=== PATIENT | female | born 1985 | race African-American/Black ===

== ENCOUNTER 2025-02-13 15:06 | Inpatient (IN) | payer OTHER, SELFPAY ==
--- OUTSIDE RECORDS SUMMARY | 2025-02-12 13:10 | XMS_ITS | Encounter Summary ---
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 Name Role Phone Physician, No Pcp Primary Care Provider Unavaila ble Reason for Visit * Reason Comments Psychiatric Evaluation Encounter Details Date Type Department Care Team (Late st Contact Info) Description 02/12/2025 1:10 PM EDT - 02/13/2025 2:52 PM EDT Emergency [facility] Emergency [address] [place] [id number] Bernabe Young, DO [address] [place] [address] Alannah Watson MD [address] [place] [address] Torsten Mabry MD [address] [place] [address] Marialuisa Ugalde MD [address] [place] [address] Substance use (Primary Dx); Homelessness Discharge Disposition: Another Health Care Institution Not Defined Social History Tobacco Use Types Packs/Day Years Used Date Smoking Tobacco: Every Day Cigarettes Smokeless Tobacco: Never Tobacco Cessation:Ready to Q uit: Not Asked; Counseling Given: Not Answered Alcohol Use Standard Drinks/Week Comments Yes 0 (1 standard drink = 0.6 oz pur e alcohol) Comments No Sex and Gender Information Value Date Recorded Sex Assigned at Not on file Legal Sex Female 1:08 PM EDT Gender Identity Not on file Sexual Orientation Not on file documented as of this encounter Last Filed Vital Signs Vital Sign Reading Time Taken Comments Blood Pressure 135/64 02/13/2025 2:30 PM EDT Pulse 87 02/13/2025 2:30 PM EDT Temperature 36.6 C (97.9 F) 02/13/2025 2:30 PM EDT Respiratory Rate 18 02/13/2025 2:30 PM EDT Oxygen Saturation 96% 02/13/2025 2:30 PM EDT Inhaled Oxygen Concentration - - Weight 145 kg (320 lb) 02/12/2025 1:19 PM EDT Height 175.3 cm (5' 9 ) 02/12/2025 1:19 PM EDT Body Mass Index 47.26 02/12/2025 1:19 PM EDT documented in this encounter Functional Status * Calculated C-SSRS Risk Score (Lifetime/Recent) Answer Date of Assessment Author No Risk Indicated 02/13/2025 9:15 AM EDT Cynthia Cabello RN * Bertie Suicide Severity Rating Scale (Screener/Recent Self-Report) Question Answer Date of Assessment Author 1. Wish to be (Past 1 Month) No 9:15 AM EDT Cynthia Cabello RN 2. Non-Specific Active Suici maeve Thoughts (Past 1 Month) No 02/13/2025 9:15 AM EDT Rody Cabello RN 6. Suicidal Behavior (Lifetime) No 9:15 AM EDT Cynthia Cabello RN documented as of this encounter Discharge Disposition Disposition Code Departure Means Destination Comment s Another Health Care Institution Not Defined documented in this encounter Progress Notes * Cynthia Cabello RN - 02/13/2025 12:02 PM EDT Nurse to Nurse report given to JESSICA Mcgrath at [facility]. This RN answered all questions, Ramila denied further questions. * Tere Franz - 02/13/2025 11:28 AM EDT BED FOUND - patient has been accepted to [facility], unit M[address], by Dr Caesar Johnston. Theywould like her there for 2pm. * Torsten Mabry MD - 02/12/2025 10:15 PM EDT Blas Reed This patient's care was signed out to me by the offgoing provider. Please see her/his note for further details regarding initial presentation, history of present illness, physical exam, and medical decision making. At time of signout, the following was pending: psych placement ED Course as of 02/13/25 0703 WedFeb 12, 2025 1533 Labs thus far are showing urine drug screen that is positive for acute cane and cannabinoids but otherwise no significant abnormalities identified on labs thus far. [AB] 1714 On reexamination, patient is without any new or worsening symptoms. She has been able to eat here and is resting in the exam bed. Workup pending evaluation by ripshear operator. [AB] [address] Young: hx polysubstance use disorder, unhoused, at halfway, using cocaine and EtOH, no SI, HI, no medical concerns, pending placement for inpatient admission [RG] 2213 Patient signed out to Dr. Mabry pending bed search. [RG] 2214 Patient signed out to me at this time pending bed search for psych inpatient admission. [CL] WedFeb 13, 2025 0700 No acute events overnight. Patient signed out to oncoming provider. [CL] ED Course User Index [AB] Bernabe Young DO [CL] Torsten Mabry MD [RG] Alannah Watson MD Clinical Impressions as of 02/13/25 0703 Substance use Homelessness No orders to display Labs Reviewed COMPREHENSIVE METABOLIC PANEL - Abnormal Result Value Sodium 134 Potassium 4.0 Chloride 101 CO2 27 Anion Gap 6 Glucose 112 (*) BUN 12 Creatinine 1.17 (*) eGFR 61 BUN/Creatinine Ratio 10.3 Calcium 8.8 AST (SGOT) 24 ALT (SGPT) 15 Alkaline Phosphatase 83 Total Protein 7.1 Albumin 3.2 Total Bilirubin 0.3 ACETAMINOPHEN LEVEL - Abnormal Acetaminophen Level <2.0 (*) SALICYLATE LEVEL - Abnormal Salicylate Level <1.7 (*) DRUG ABUSE SCREEN 8A PANEL, URINE - Abnormal Amphetamine Screen, Ur Negative Barbiturate Screen, Ur Negative Benzodiazepine Screen, Ur Negative Cocaine Screen, Ur Positive (*) Opiate Screen, Ur Negative Cannabinoid (THC) Screen, Ur Positive (*) Oxycodone Screen, Ur Negative Fentanyl, Ur Negative Narrative: Assay cutoffs: Amphetamines 1000 ng/mL Barbiturates 200 ng/mL Benzodiazepines 200 ng/mL Cocaine 300 ng/mL Fentanyl 1 ng/mL Opiates 300 ng/mL Oxycodone 100 ng/mL THC 50 ng/mL Semi-quantitative assay for screening purposes only. Unconfirmed screening result should not be used for non-medical purposes. *ALTERNATE METHOD CONFIRMATION DONE UPON REQUEST ONLY* CBC WITH AUTO DIFFERENTIAL - Abnormal WBC 9.8 RBC 4.70 Hemoglobin 12.5 Hematocrit 40.7 MCV 86.6 MCH 26.6 (*) MCHC 30.7 (*) RDW 16.4 (*) Platelets 300 MPV 10.7 NRBC 0.0 NRBC Absolute 0.00 Neutrophils Relative 68.5 Lymphocytes Relative 20.9 Monocytes Relative 6.4 Eosinophils Relative 3.6 Basophils Relative 0.3 Immature Granulocytes Relative 0.3 Neutrophils Absolute 6.70 Lymphocytes Absolute 2.04 Monocytes Absolute 0.63 Eosinophils Absolute 0.35 Basophils Absolute 0.03 Immature Granulocytes Absolute 0.03 ETHANOL - Normal Ethanol Level 3 BUPRENORPHINE SCREEN, URINE - Normal Buprenorphine Screen Urine Negative Narrative: Assay cutoff 5 ng/mL Semi-quantitative assay for screening purposes only. Unconfirmed screening result should not be used for non-medical purposes. *ALTERNATE METHOD CONFIRMATION DONE UPON REQUEST ONLY* PHENCYCLIDINE, URINE - Normal PCP Scrn, Ur Negative METHADONE SCREEN, URINE - Normal Methadone Screen, Urine Negative POC , URINE DIAGNOSTIC - Normal HCG, Ur POC Negative POC hCG Int QC Pass? Yes CBC AND DIFFERENTIAL Narrative: The following orders were created for panel order CBC and differential. Procedure Abnormality Status --------- ------ CBC auto differential[[id number]] Abnormal Final result Please view results for these tests on the individual orders. Clinical Impression(s): Final diagnoses: [F19.90] Substance use [Z59.00] Homelessness Data Unavailable Previous Medications No medications on file ED Medication Administration from 02/12/2025 1308 to 02/13/2025 0703 Date/Time Order Dose Route Action Action by 02/12/2025 1345 EDT LORazepam (ATIVAN) tablet 2 mg 2 mg oral Given Fermin Bourne * Alannah Watson MD - 02/12/2025 10:15 PM EDT Blas Reed ED Course as of 02/12/252214Feb 12, 2025 1533 Labs thus far are showing urine drug screen that is positive for acute cane and cannabinoids but otherwise no significant abnormalities identified on labs thus far. [AB] 1714 On reexamination, patient is without any new or worsening symptoms. She has been able to eat here and is resting in the exam bed. Workup pending evaluation by ripshear operator. [AB] [address] Young: hx polysubstance use disorder, unhoused, at halfway, using cocaine and EtOH, no SI, HI, no medical concerns, pending placement for inpatient admission [RG] 2213 Patient signed out to Dr. Mabry pending bed search. [RG] 2213 Patient signed out to [facility] at this time pending bed search for psych inpatient admission. [CL] ED Course User Index [AB] Bernabe Young DO [CL] Torsten Mabry MD [RG] Alannah Watson MD Clinical Impressions as of 02/12/252214 Substance use Homelessness * Nelia Frazier RN - 02/12/2025 1:13 PM EDT PT USING CRACK X 2 WEEKS MARIJUANA, ETOH, NOT SLEEPING X 1 WEEK FRIENDS OF HOMELESS - SECT 12 DENIES SI AT THIS TIME * Bernabe Young DO - 02/12/2025 1:08 PM EDT HPI Chief Complaint Patient presents with Psychiatric Evaluation HPI This is a 39-year-old female who presents to the emergency department for evaluation because she went to the homeless halfway and was sent here because she was restless appearing and had stated that she had not been sleeping for several days. The patient reports that she is homeless and had been staying with a family member however they kicked her out today. She describes a history of some mentalhealth disorders and more recently reports that she started smoking crack cocaine and drinking again. This is causing her to feel upset and sad. She denies homicidal or suicidal ideations. Reports no auditory or visual hallucinations at this time. Patient History Medical History[1] Surgical History[2] Family History[3] Social History Tobacco Use Smoking status: Every Day Types: Cigarettes Smokeless tobacco: Never Substance Use Topics Alcohol use: Yes Drug use: Yes Types: Crack cocaine Review of Systems Review of Systems Constitutional: Negative for fatigue and fever. Eyes: Negative for visual disturbance. Cardiovascular: Negative for palpitations. Gastrointestinal: Negative for nausea and vomiting. Skin: Negative for rash and wound. Neurological: Negative for dizziness, syncope, weakness and light-headedness. Psychiatric/Behavioral: Positive for dysphoric mood and sleep disturbance. Negative for agitation, hallucinations, self-injury and suicidal ideas. The patient is nervous/anxious and is hyperactive. Physical Exam ED Triage Vitals Temp Pulse Resp BP -- -- -- -- SpO2 Temp src Heart Rate Source Patient Position -- -- -- -- BP Location FiO2 (%) -- -- Physical Exam Vitals and nursing note reviewed. Constitutional: Appearance: She is not diaphoretic. HENT: Head: Normocephalic and atraumatic. Nose: Nose normal. Mouth/Throat: Mouth: Mucous membranes are moist. Pharynx: Oropharynx is clear. Eyes: Extraocular Movements: Extraocular movements intact. Right eye: Normal extraocular motion and no nystagmus. Left eye: Normal extraocular motion and no nystagmus. Conjunctiva/sclera: Right eye: Right conjunctiva is injected. No chemosis, exudate or hemorrhage. Left eye: Left conjunctiva is injected. No chemosis, exudate or hemorrhage. Pupils: Pupils are equal, round, and reactive to light. Comments: Pupils are 4 mm and reactive to light bilaterally. Cardiovascular: Rate and Rhythm: Normal rate and regular rhythm. Pulses: Normal pulses. Heart sounds: Normal heart sounds. Pulmonary: Effort: Pulmonary effort is normal. No respiratory distress. Breath sounds: Normal breath sounds. No wheezing, rhonchi or rales. Abdominal: General: Abdomen is flat. Palpations: Abdomen is soft. Musculoskeletal: General: No swelling, deformity or signs of injury. Normal range of motion. Cervical back: Normal range of motion and neck supple. Skin: General: Skin is warm and dry. Capillary Refill: Capillary refill takes less than 2 seconds. Neurological: General: No focal deficit present. Mental Status: She is alert and oriented to person, place, and time. GCS: GCS eye subscore is 4. GCS verbal subscore is 5. GCS motor subscore is 6. Sensory: Sensation is intact. Motor: Motor function is intact. No tremor. Coordination: Coordination is intact. Gait: Gait is intact. Psychiatric: Mood and Affect: Mood is anxious. Affect is tearful. Speech: Speech normal. Behavior: Behavior is not agitated, aggressive or combative. Thought Content: Thought content does not include homicidal or suicidal ideation. Comments: The patient is restless appearing. She is fidgeting with her hands but does not appear madeline overly agitated or aggressive. She communicates through the duration of the exam and seems to have linear thinking but is tearful. ED Course & [facility] ED Course as of 02/12/251716Feb 12, 2025 153 Labs thus far are showing urine drug screen that is positive for acute cane and cannabinoids but otherwise no significant abnormalities identified on labs thus far. [AB] 1714 On reexamination, patient is without any new or worsening symptoms. She has been able to eat here and is resting in the exam bed. Workup pending evaluation by ripshear operator. [AB] ED Course User Index [AB] Bernabe Young DO Clinical Impressions as of 02/12/25 1717 Substance use Homelessness Medical Decision Making Laboratory summary: Labs Reviewed COMPREHENSIVE METABOLIC PANEL - Abnormal Result Value Sodium 134 Potassium 4.0 Chloride 101 CO2 27 Anion Gap 6 Glucose 112 (*) BUN 12 Creatinine 1.17 (*) eGFR 61 BUN/Creatinine Ratio 10.3 Calcium 8.8 AST (SGOT) 24 ALT (SGPT) 15 Alkaline Phosphatase 83 Total Protein 7.1 Albumin 3.2 Total Bilirubin 0.3 ACETAMINOPHEN LEVEL - Abnormal Acetaminophen Level <2.0 (*) SALICYLATE LEVEL - Abnormal Salicylate Level <1.7 (*) DRUG ABUSE SCREEN 8A PANEL, URINE - Abnormal Amphetamine Screen, Ur Negative Barbiturate Screen, Ur Negative Benzodiazepine Screen, Ur Negative Cocaine Screen, Ur Positive (*) Opiate Screen, Ur Negative Cannabinoid (THC) Screen, Ur Positive (*) Oxycodone Screen, Ur Negative Fentanyl, Ur Negative Narrative: Assay cutoffs: Amphetamines 1000 ng/mL Barbiturates 200 ng/mL Benzodiazepines 200 ng/mL Cocaine 300 ng/mL Fentanyl 1 ng/mL Opiates 300 ng/mL Oxycodone 100 ng/mL THC 50 ng/mL Semi-quantitative assay for screening purposes only. Unconfirmed screening result should not be used for non-medical purposes. *ALTERNATE METHOD CONFIRMATION DONE UPON REQUEST ONLY* CBC WITH AUTO DIFFERENTIAL - Abnormal WBC 9.8 RBC 4.70 Hemoglobin 12.5 Hematocrit 40.7 MCV 86.6 MCH 26.6 (*) MCHC 30.7 (*) RDW 16.4 (*) Platelets 300 MPV 10.7 NRBC 0.0 NRBC Absolute 0.00 Neutrophils Relative 68.5 Lymphocytes Relative 20.9 Monocytes Relative 6.4 Eosinophils Relative 3.6 Basophils Relative 0.3 Immature Granulocytes Relative 0.3 Neutrophils Absolute 6.70 Lymphocytes Absolute 2.04 Monocytes Absolute 0.63 Eosinophils Absolute 0.35 Basophils Absolute 0.03 Immature Granulocytes Absolute 0.03 ETHANOL - Normal Ethanol Level 3 BUPRENORPHINE SCREEN, URINE - Normal Buprenorphine Screen Urine Negative Narrative: Assay cutoff 5 ng/mL Semi-quantitative assay for screening purposes only. Unconfirmed screening result should not be used for non-medical purposes. *ALTERNATE METHOD CONFIRMATION DONE UPON REQUEST ONLY* PHENCYCLIDINE, URINE - Normal PCP Scrn, Ur Negative METHADONE SCREEN, URINE - Normal Methadone Screen, Urine Negative POC , URINE DIAGNOSTIC - Normal HCG, Ur POC Negative POC hCG Int QC Pass? Yes CBC AND DIFFERENTIAL Narrative: The following orders were created for panel order CBC and differential. Procedure Abnormality Status --------- ------ CBC auto differential[[id number]] Abnormal Final result Please view results for these tests on the individual orders. Laboratory results above were independently viewed and interpreted by me. Radiography/Imaging: No orders to display No results found. Imaging result above were independently viewed and interpreted by me. Medical Decision Making including ED Course and Interventions Assessment: Blas Reed is a 39 y.o. female who presents for psychiatric evaluation. The patient is the primary who historian though EMS provides some information as well. The patient describes a history of some mental health disorders and states that more recently she has not been sleeping well due to somehousing insecurity and today was at the halfway who sent her here for evaluation. She reports that she smokes crack and drinks some alcohol. Reports that she is not taking any medications at this time. She denies any recent illnesses or injuries. Here in the ED she is afebrile and hemodynamically stable. She is tearful and restless but is not homicidal or suicidal. The lab work today shows no significant abnormalities. Urine drug screen positive for cocaine and cannabinoids. She has remained in the ER through the duration of my shift and has had no significant events and has been stable and denies any new or worsening symptoms. She has not been homicidal or suicidal. We discussed her workup. Disposition will be pending evaluation by the ripshear operator. Patient agreeable to plan as described above. All questions answered thus far. Administered medications in the ED: Medications LORazepam (ATIVAN) tablet 2 mg (2 mg oral Given 02/12/25 1345) External records and previous hospitalization records reviewed and documented as above. Consideration of Social Determinants of Health and Impact on Medical Decision-Making: Housing Transportation Financial Strain Access to Healthcare Food Insecurity Family/Community Support Language and Literacy Substance Use Mental Health Concerns Disabilities Describe Impact : Substance use, homelessness Disposition The case was discussed with and signed out to the oncoming provider pending evaluation by the ripshear operator, additional evaluation and management as indicated, and disposition. [1] Past Medical History: Diagnosis Date Anxiety Depression PTSD (post-traumatic stress disorder) [2] History reviewed. No pertinent surgical history. [3] No family history on file. Bernabe Young DO 02/12/25 1719 documented in this encounter Consult Notes * Kerrie Dumont LCSW - 02/12/2025 1:31 PM EDTAssociated Order(s): IP CONSULT TO [employer] [employer] Patient was assessed in the community by [facility] crisis and found appropriate for Inpatient level of care due to depression and medication non-compliance; evaluation will be faxed upon completion. [facility] will initiate the bed search upon medical clearance. documented in this encounter Plan of Treatment Pending Results Name Type Priority Associated Diagnoses Date /Time ECG 12 lead ECG STAT 02/13/2025 10 :12 AM EDT documented as of this encounter Procedures Procedure Name Priority Date/Time Associated Diagnosis Comments ECG 12-LEAD STAT 02/13/2025 10:12 AM EDT DRUG ABUSE SCREEN 8A PANEL, URINE STAT 02/12/2025 1:52 PM EDT BUPRENORPHINE SCREEN, URINE STAT 02/12/2025 1:52 PM EDT METHADONE SCREEN, URINE STAT 02/12/2025 1:52 PM EDT PHENCYCLIDINE, URINE STAT 02/12/2025 1:52 PM EDT POC , URINE DIAGNOSTIC STAT 02/12/2025 1:52 PM EDT CBC WITH AUTO DIFFERENTIAL STAT 02/12/2025 1:34 PM EDT CBC AND DIFFERENTIAL STAT 02/12/2025 1:34 PM EDT ETHANOL STAT 02/12/2025 1:34 PM EDT ACETAMINOPHEN LEVEL STAT 02/12/2025 1 :34 PM EDT SALICYLATE LEVEL STAT 02/12/2025 1:34 PM EDT COMPREHENSIVE METABOLIC PANEL STAT 02/12/2025 1:34 PM EDT documented in this encounter Results * POC , urine manually resulted (02/12/2025 1:52 PM EDT) HCG, Ur POC Negative Negative POC hCG Int QC Pass? Yes Yes Urine Urine specimen obtained by clean catch procedure / Unknown 02/12/2025 1:52 PM EDT us Bernabe Young DO POINT OF CARE TEST ENTER/EDIT ORDERABLES Final Result * Methadone, urine (02/12/2025 1:52 PM EDT) Methadone Screen, Urine Negative Negative LAB CHEMISTRY METHOD 02/12/2025 3:20 PM EDT [facility] Comment: Assay cutoff 300 ng/mL Semi-quantitative assay for screening purposes only. Unconfirmed screening result should not be used for non-medical purposes. *ALTERNATE METHOD CONFIRMATION DONE UPON REQUEST ONLY* Urine Urine specimen obtained by clean catch procedure / Unknown Non-blood Collection / Unknown 02/12/2025 1:52 PM EDT 02/12/2025 2:38 PM EDT Bernabe Hector DO LAB URINE ORDERABLES Final Res ult Performing Organization Address [facility] Co de Phone Number [facility] [address] [place] [address], [place] [phone] * Phencyclidine, urine (02/12/2025 1:52 PM EDT) [facility] PCP Scrn, Ur Negative Negative LAB CHEMISTRY METHOD 02/12/2025 3:20 PM EDT [facility] Comment: Assay cutoff 25 ng/mL Semi-quantitative assay for screening purposes only. Unconfirmed screening result should not be used for non-medical purposes. *ALTERNATE METHOD CONFIRMATION DONE UPON REQUEST ONLY* Urine Urine specimen obtained by clean catch procedure / Unknown Non-blood Collection / Unknown 02/12/2025 1:52 PM EDT 02/12/2025 2:38 PM EDT Bernabe Hector DO LAB URINE ORDERABLES Final Res ult Performing Organization Address [facility]/ZIP Co de Phone Number [facility] [address] [place] [address], [place] [phone] * Buprenorphine screen, urine (02/12/2025 1:52 PM EDT) [facility] Buprenorphine Screen Urine Negative Negative LAB CHEMISTRY METHOD 02/12/2025 3:20 PM EDT [facility] Urine Urine specimen obtained by clean catch procedure / Unknown Non-blood Collection / Unknown 02/12/2025 1:52 PM EDT 02/12/2025 2:38 PM EDT Narrative [facility] - 02/12/2025 3:20 PM EDT Assay cutoff 5 ng/mL Semi-quantitative assay for screening purposes only. Unconfirmed screening result should not be used for non-medical purposes. *ALTERNATE METHOD CONFIRMATION DONE UPON REQUEST ONLY* us Bernabe Young DO LAB URINE ORDERABLES Final Res ult [facility] [address] [place] [address], [place] [phone] * (ABNORMAL) Drug abuse screen 8a panel, urine (02/12/2025 1:52 PM EDT) Amphetamine Screen, Ur Negative Negative LAB CHEMISTRY METHOD 3:20 PM EDT [facility] Comment:Certain OTC medicati ons containing ephedrine, phenylephrine, pseudoephedrine and phenylpropanolamine can cause false positive results. Barbiturate Screen, Ur Negative Negative LAB CHEMISTRY METHOD 5 3:20 PM EDT [facility] Benzodiazepine Screen, Ur Negative Negative LAB CHEMISTRY METHOD 5 3:20 PM EDT [facility] Cocaine Screen, Ur Positive(A ) Negative LAB CHEMISTRY METHOD 5 3:20 PM EDT [facility] Opiate Screen, Ur Negative Negative LAB CHEMISTRY METHOD 5 3:20 PM EDT [facility] Cannabinoid (THC) Screen, Ur Positive(A ) Negative LAB CHEMISTRY METHOD 5 3:20 PM T [facility] Comment:Specimens from patie nts taking pantoprazole sodium (Protonix) have been shown to produce false positive results. Oxycodone Screen, Ur Negative Negative LAB CHEMISTRY METHOD 5 3:20 PM EDT [facility] Fentanyl, Ur Negative Negative LAB CHEMISTRY METHOD 3:20 PM EDT [facility] Urine Urine specimen obtained by clean catch procedure / Unknown Non-blood Collection / Unknown 02/12/2025 1:52 PM EDT 02/12/2025 2:38 PM EDT Narrative [facility] - 02/12/2025 3:20 PM EDT Assay cutoffs: Amphetamines 1000 ng/mL Barbiturates 200 ng/mL Benzodiazepines 200 ng/mL Cocaine 300 ng/mL Fentanyl 1 ng/mL Opiates 300 ng/mL Oxycodone 100 ng/mL THC 50 ng/mL Semi-quantitative assay for screening purposes only. Unconfirmed screening result should not be used for non-medical purposes. *ALTERNATE METHOD CONFIRMATION DONE UPON REQUEST ONLY* us Bernabe Young DO LAB URINE ORDERABLES Final Res ult [facility] [address] [place] [address], [place] [phone] * (ABNORMAL) CBC auto differential (02/12/2025 1:34 PM EDT) WBC 9.8 4.8 - 10.8 K/mcL LAB HEMETOLOGY METHOD 02/12/2025 2:48 PM EDT [facility] RBC 4.70 3.80 - 4.80 M/[facility] LAB HEMETOLOGY METHOD 02/12/2025 2:48 PM EDT [facility] Hemoglobin 12.5 11.5 - 16.0 g/dL LAB HEMETOLOGY METHOD 02/12/2025 2:48 PM EDT [facility] Hematocrit 40.7 35.0 - 47.0 % LAB HEMETOLOGY METHOD 02/12/2025 2:48 PM EDT [facility] MCV 86.6 79.0 - 98.0 FL LAB HEMETOLOGY METHOD 02/12/2025 2:48 PM EDT [facility] MCH 26.6(L) 27.0 - 32.0 pcg LAB HEMETOLOGY METHOD 02/12/2025 2:48 PM EDT [facility] MCHC 30.7(L) 32.0 - 37.0 g/dL LAB HEMETOLOGY METHOD 02/12/2025 2:48 PM EDT [facility] RDW 16.4(H) 11.0 - 15.0 % LAB HEMETOLOGY METHOD 02/12/2025 2:48 PM EDT [facility] Platelets 300 130 - 400 K/mcL LAB HEMETOLOGY [facility] MPV 10.7 7.0 - 11.0 FL LAB HEMETOLOGY METHOD 02/12/2025 2:48 PM EDT [facility] NRBC 0.0 <1.0 % LAB HEMETOLOGY METHOD 02/12/2025 2:48 PM EDT [facility] NRBC Absolute 0.00 <0.10 K/mcL LAB HEMETOLOGY METHOD 02/12/2025 2:48 PM EDT [facility] Neutrophils Relative 68.5 % LAB HEMETOLOGY [facility] Lymphocytes Relative 20.9 % LAB HEMETOLOGY METHOD 02/12/2025 2:48 PM EDT [facility] Monocytes Relative 6.4 % LAB HEMETOLOGY METHOD 02/12/2025 2:48 PM EDT [facility] Eosinophils Relative 3.6 % LAB HEMETOLOGY METHOD 02/12/2025 2:48 PM EDT [facility] Basophils Relative 0.3 % LAB HEMETOLOGY METHOD 02/12/2025 2:48 PM EDT [facility] Immature Granulocytes Relative 0.3 % LAB HEMETOLOGY METHOD 02/12/2025 2:48 PM EDT [facility] Neutrophils Absolute 6.70 1.50 - 7.00 K/mcL LAB HEMETOLOGY METHOD 02/12/2025 2:48 PM EDT [facility] Lymphocytes Absolute 2.04 1.00 - 5.00 K/mcL LAB HEMETOLOGY METHOD 02/12/2025 2:48 PM EDT [facility] Monocytes Absolute 0.63 0.20 - 1.00 K/mcL LAB HEMETOLOGY METHOD 02/12/2025 2:48 PM EDT [facility] Eosinophils Absolute 0.35 0.00 - 0.50 K/[facility] HEMETOLOGY METHOD 02/12/2025 2:48 PM EDT [facility] Basophils Absolute 0.03 0.00 - 0.20 K/mcL LAB HEMETOLOGY METHOD 02/12/2025 2:48 PM EDT [facility] Immature Granulocytes Absolute 0.03 0.00 - 0.03 K/[facility] HEMETOLOGY METHOD 02/12/2025 2:48 PM EDT [facility] Blood Venous blood specimen / Unknown Venipuncture / Unknown 02/12/2025 1:34 PM EDT 02/12/2025 2:38 PM EDT us Bernabe Young DO LAB BLOOD ORDERABLES Final Res ult [facility] [address] [place] [address], * (ABNORMAL) Salicylate level (02/12/2025 1:34 PM EDT) Salicylate Level <1.7(L) 2.0 - 29.0 mg/dL LAB CHEMISTRY METHOD 02/12/2025 3:21 PM EDT [facility] Blood Venous blood specimen / Unknown Venipuncture / Unknown 02/12/2025 1:34 PM EDT 02/12/2025 2:38 PM EDT [facility] BLOOD ORDERABLES Final Res ult Performing Organization Address [facility]/ZIP Co de Phone Number [facility] [address] [place] [address], [place] [phone] * (ABNORMAL) Acetaminophen level (02/12/2025 1:34 PM EDT) Acetaminophen Level <2.0(L) 10.0 - 30.0 mcg/mL LAB CHEMISTRY METHOD 02/12/2025 3:49 PM EDT [facility] Blood Venous blood specimen / Unknown Venipuncture / Unknown 02/12/2025 1:34 PM EDT 02/12/2025 2:38 PM EDT [facility] BLOOD ORDERABLES Final Res ult Performing Organization Address [facility] Co de Phone Number [facility] [address] [place] [address], [place] [phone] * Ethanol (02/12/2025 1:34 PM EDT) Ethanol Level 3 0 - 10 mg/dL LAB CHEMISTRY METHOD 02/12/2025 3:19 PM EDT [facility] Blood Venous blood specimen / Unknown Venipuncture / Unknown 02/12/2025 1:34 PM EDT 02/12/2025 2:38 PM EDT [facility] BLOOD ORDERABLES Final Res ult Performing Organization Address City/[facility]/ZIP Co de Phone Number [facility] [address] [place] [address], [place] [phone] * (ABNORMAL) Comprehensive metabolic panel (02/12/2025 1:34 PM EDT) [facility] Signature Sodium 134 133 - 145 mmol/L LAB CHEMISTRY METHOD 02/12/2025 3:21 PM [facility] Potassium 4.0 3.5 - 5.5 mmol/L LAB CHEMISTRY METHOD 02/12/2025 3:21 PM [facility] Chloride 101 96 - 110 mmol/L LAB CHEMISTRY METHOD 02/12/2025 3:21 PM [facility] CO2 27 21 - 32 mmol/L LAB CHEMISTRY METHOD 02/12/2025 3:21 PM [facility] Anion Gap 6 3 - 11 LAB CHEMISTRY METHOD 02/12/2025 3:21 PM [facility] Glucose 112(H) 70 - 100 mg/dL LAB CHEMISTRY METHOD 02/12/2025 3:21 PM [facility] BUN 12 5 - 25 mg/dL LAB CHEMISTRY METHOD 02/12/2025 3:21 PM [facility] Creatinine 1.17(H) 0.50 - 1.10 mg/dL LAB CHEMISTRY METHOD 02/12/2025 3:21 PM [facility] eGFR 61 >=60 mL/min/1. 73m2 LAB CHEMISTRY METHOD 02/12/2025 3:21 PM [facility] Comment:Calculation based on the Chronic Kidney Disease Epidemiology Collaboration (CKD-EPI) equation refit without adjustment for race. BUN/Creatinine Ratio 10.3 LAB CHEMISTRY METHOD 02/12/2025 3:21 PM [facility] Calcium 8.8 8.5 - 10.5 mg/dL LAB CHEMISTRY METHOD 02/12/2025 3:21 PM [facility] AST (SGOT) 24 10 - 42 unit/L LAB CHEMISTRY METHOD 02/12/2025 3:21 PM [facility] ALT (SGPT) 15 10 - 60 unit/L LAB CHEMISTRY METHOD 02/12/2025 3:21 PM EDT [facility] Alkaline Phosphatase 83 42 - 121 unit/L LAB CHEMISTRY METHOD 02/12/2025 3:21 PM EDT [facility] Total Protein 7.1 6.0 - 8.0 g/dL LAB CHEMISTRY METHOD 02/12/2025 3:21 PM EDT [facility] Albumin 3.2 3.2 - 5.0 g/dL LAB CHEMISTRY METHOD 02/12/2025 3:21 PM EDT [facility] Total Bilirubin 0.3 0.0 - 1.4 mg/dL LAB CHEMISTRY METHOD 02/12/2025 3:21 PM EDT [facility] Blood Venous blood specimen / Unknown Venipuncture / Unknown 02/12/2025 1:34 PM EDT 02/12/2025 2:38 PM EDT us Bernabe Young DO LAB BLOOD ORDERABLES Final Res ult [facility] [address] [place] [address], [place] [phone] documented in this encounter Visit Diagnoses Diagnosis Substance use- Primary Homelessness Lack of housing documented in this encounter Administered Medications Inactive Administered Medications - up to 3 most recent administrations Medication Order MAR Action Action Date Dose Rate Site LORazepam (ATIVAN) tablet 2 mg 2 mg, oral, Once, On Wed02/12/25 at 1327, For 1 dose Given 02/12/2025 1:45 PM EDT 2 mg documented in this encounter Active and Recently Administered Medications Times are shown in EDT. Scheduled Medication Order 02/11/2025 02/12/2025 02/13/2025 LORazepam (ATIVAN) tablet 2 mg (COMPLETED) 2 mg, oral, Once, On Wed02/12/25 at 1327, For 1 dose 1345 (Given - Provider: Debbie Bourne RN) documented in this encounter Orders Medications Ordered That Alvaro ht Not Have Been Administered Count Last Ordered Date First Ordered Date LORazepam (ATIVAN) tablet 2 mg 1 02/12/2025 Diet Count Last Ordered Date First Orde red Date ADULT DIET 1 02/12/2025 Nursing Count Last Ordered Date First Orde red Date NURSING GENERAL ASSESSMENTS AND INTERVENTIONS 2 02/12/2025 Consult Count Last Ordered Date First Orde red Date IP CONSULT TO [employer]TER 1 02/12/2025 Precaution Count Last Ordered Date First Orde red Date SUICIDE PRECAUTIONS 1 02/12/2025 Privilege Level Count Last Ordered Date First O rdered Date PATIENT PHONE TRIAGE SPECIALIST 1 02/12/2025 documented in this encounter Care Teams [employer] Machine [employer] Supervisor Relationship Specialty Start Date End Date Physician, No Pcp PCP - General 02/12/25 documented as of this encounter
[2025-02-13 15:23] VITALS: BMI 47.7
[2025-02-13 15:24] VITALS: BP 145/75; PULSE 100; RESP 18; TEMP 36.8; O2SAT 98
--- OUTSIDE RECORDS SUMMARY | 2025-02-13 16:28 | XMS_ITS | Clinical Summary ---
Author Organization [employer] Address [address] [place] [address] Care Team Providers Care Laboratory Clerk Name Role Phone Unavailable Primary Care Provider Unavailabl e Allergies No known active allergies Medications escitalopram (Lexapro) 10 MG tabletIndication s:Generalized Anxiety Disorder Take 10 mg by mouth in the morning. 04/27/2022 Active escitalopram (Lexapro) 20 MG tabletIndication s:Generalized Anxiety Disorder 08/31/2022 Ac tive furosemide (Lasix) 20 MG tabletIndication s:Edema 08/31/2022 Active hydrOXYzine HCl (Atarax) 25 MG tabletIndication s:insomnia 08/31/2022 Active melatonin 3 MG tablet 08/28/2022 Active oxybutynin (Ditropan) 5 MG tabletIndication s:Urinary Frequency 08/31/2022 Active ibuprofen 600 MG tablet 08/31/2022 Active acetaminophen (Tylenol) 325 MG tablet 08/31/2022 Active Antacid Maximum Strength 800-800-80 MG/10ML suspension 09/08/2022 Active traZODone (Desyrel) 50 MG tabletIndication s:Insomnia Take 25 mg by mouth at bedtime. Active Social History Tobacco Use Types Packs/Day Years Used Date Smoking Tobacco: Never Assessed Housing Stability Answer Date Recorded What is your housing situation today? I have ophelia sing 09/09/[address] you li ve. Do you have problems with any of the following? None of the above 09/09/2023 Food Insecurity Answer Date Recorded Within the past 12 months, y ou worried that your food would run out before you got money to buy more: Never True 09/09/2023 Within the past 12 months,th e food you bought just didn't last and you didn't have enough money to get more: Never True Transportation Answer Date Recorded In the past 12 months, has l ack of transportation kept you from medical appts, meetings, work or from getting things needed for daily living? No 09/09/2023 Utilities Answer Date Recorded In the past 12 months, has t he electric, gas, oil or water company threatened to shut off services in your home? No 09/09/2023 Comments Unknown Sex and Gender Information Value Date Recorded Sex Assigned at Unknown 09/09/2022 10:49 AM EDT Legal Sex Female 10:39 AM EDT Gender Identity Female 09/09/2022 10:49 AM EDT Sexual Orientation Don't know 09/09/2022 10 :49 AM EDT Last Filed Vital Signs Vital Sign Reading Time Taken Comments Blood Pressure 128/85 09/09/2022 3:23 PM EDT Pulse 106 09/09/2022 3:23 PM EDT Temperature 37.2 C (99 F) 09/09/2022 3:23 PM EDT Respiratory Rate - - Oxygen Saturation - - Inhaled Oxygen Concentration - - Weight - - Height - - Body Mass Index - - Plan of Treatment Health Maintenance Due Date Last Done Comments Dental Oral Exam 1985 Dental Prophylaxis 1985 Dental X-Ray: Bitewings 1985 Dental X-Ray: Full Mouth 1985 Depression Screening 1985 HIV Screening 1985 Lipid Panel 1985 Disability Screening 1985 Alcohol/Substance Use Screening 1997 Tobacco Screening 1997 Family Planning (PISQ) 2000 HPV Vaccines (1 - 3-dose series) 2000 Hepatitis C Screening 11/25/2003 DTaP/Tdap/Td Vaccines (1 - Tdap) 2004 Hepatitis B Vaccines (1 of 3 - 19+ 3-dose series) 2004 Pap Smear 2006 Cervical Cancer Screening 11/25/2015 HPV/Cotest 11/25/2015 SDOH Screening 09/08/2024 09/09/2023 COVID-19 Vaccine (2 - 2024-2 6 season) 2025 11/26/2020 Influenza Vaccine (#1) 2025 , 04/15/2022 Zoster Vaccines (1 of 2) 11/25/2035 RSV Patients and Patients Aged 60 years or older (1 - 1-dose 75+ series) 2060 HIB Vaccines Aged Out No longer eligi ble based on patient's age to complete this topic Hepatitis A Vaccines Aged Out No long er eligible based on patient's age to complete this topic IPV Vaccines Aged Out No longer eligi ble based on patient's age to complete this topic Meningococcal B Vaccine Aged Out No l onger eligible based on patient's age to complete this topic Meningococcal Vaccine Aged Out No peter lori eligible based on patient's age to complete this topic Pneumococcal Vaccine: Pediatrics (0 to 5 Years) and At-Risk Patients (6 to 49) Years Aged Out No longer eligible b ased on patient's age to complete this topic RSV under 20 months Aged Out No longe r eligible based on patient's age to complete this topic Rotavirus Vaccines Aged Out No longer eligible based on patient's age to complete this topic Insurance [facility] , [address] [place] [address] [facility] ADULT
--- OUTSIDE RECORDS SUMMARY | 2025-02-13 16:28 | XMS_ITS | Clinical Summary ---
Author Organization [facility] Address [address] [place] [address] Phone Care Team Providers Care Cracking Unit Operator Name Role Phone Physician, No Pcp Primary Care Provider Unavaila ble Allergies No known active allergies Medications No known medications Active Problems No known active problems Encounters Date Type Department Care Team Description 02/12/2025 1:10 PM EDT - 02/13/2025 2:52 PM EDT Emergency [facility] Emergency [address] [place] [address] Bernabe Young DO Gordon, Ruth, MD Lawrenz, Cedric W, MD Muhoozi, Bannet, MD Substance use (Primary Dx); Homelessness Discharge Disposition: Another Health Care Institution Not Defined from Last 3 Months Medical History Medical History Date Comments Anxiety Depression PTSD (post-traumatic stress disorder) Social History Tobacco Use Types Packs/Day Years [...] on file Sexual Orientation Not on file Obstetrics History Last Filed Vital Signs Vital Sign Reading [...] Mass Index 47.26 02/12/2025 1:19 PM EDT Plan of Treatment Health Maintenance Due Date Last Done Comments DTaP,Tdap,and Td Vaccines (1 - Tdap) 2004 Hepatitis B Vaccines (1 of 3 - 19+ 3-dose series) 2004 Pneumococcal Vaccine: Pediat rics (0 to 5 Years) and At-Risk Patients (6 to 49 Years) (1 of 2 - PCV) 2004 Cervical Cancer Screening: P ap Smear 2006 HPV Vaccines (1 - 3-dose SCD M series) 2012 Depression Screening 05/17/2024 COVID-19 Vaccine (1 - 2023-2 5 season) 2025 Influenza Vaccine (#1) 2025 Cholesterol Screening (Lipid Panel) 02/12/2025 HIV Screening 02/12/2025 Hepatitis C Screening 02/12/2025 Social Influencers of Health Screening 02/12/2025 RSV Immunization Adult Patie nts (1 - 1-dose 75+ series) 2060 HIB Vaccines Aged Out No longer eligi ble based on patient's age to complete this topic Hepatitis A Vaccines Aged Out No long er eligible based on patient's age to complete this topic IPV Vaccines Aged Out No longer eligi ble based on patient's age to complete this topic MMR Vaccines Aged Out No longer eligi ble based on patient's age to complete this topic Meningococcal ACWY Vaccine Aged Out N o longer eligible based on patient's age to complete this topic Meningococcal B Vaccine Aged Out No l onger eligible based on patient's age to complete this topic RSV Immunization Patients Un jadon 20 months Aged Out No longer eligible b ased on patient's age to complete this topic Varicella Vaccines Aged Out No longer eligible based on patient's age to complete this topic Procedures Procedure Name Priority Date/Time Associated Diagnosis Comments ECG 12-LEAD STAT 02/13/2025 10:12 AM EDT POC , URINE DIAGNOSTIC STAT 02/12/2025 1:52 PM EDT METHADONE SCREEN, URINE STAT 02/12/2025 1:52 PM EDT PHENCYCLIDINE, URINE STAT 02/12/2025 1:52 PM EDT BUPRENORPHINE SCREEN, URINE STAT 02/12/2025 1:52 PM EDT DRUG ABUSE SCREEN 8A PANEL, URINE STAT 02/12/2025 1:52 PM EDT CBC WITH AUTO DIFFERENTIAL STAT 02/12/2025 1:34 PM EDT SALICYLATE LEVEL STAT 02/12/2025 1:34 PM EDT ACETAMINOPHEN LEVEL STAT 02/12/2025 1 :34 PM EDT ETHANOL STAT 02/12/2025 1:34 PM EDT COMPREHENSIVE METABOLIC PANEL STAT 02/12/2025 1:34 PM EDT CBC AND DIFFERENTIAL STAT 02/12/2025 1:34 PM EDT from Last 3 Months Results * (ABNORMAL) Drug abuse screen 8a panel, urine (02/12/2025 1:52 PM EDT) [facility] Signature Amphetamine Screen, Ur Negative Negative LAB CHEMISTRY METHOD 3:20 PM EDT [facility] Comment:Certain OTC medicati ons containing ephedrine, phenylephrine, pseudoephedrine and phenylpropanolamine can cause false positive results. Barbiturate Screen, Ur Negative Negative LAB CHEMISTRY METHOD 3:20 PM EDT [facility] Benzodiazepine Screen, Ur Negative Negative LAB CHEMISTRY METHOD 3:20 PM EDT [facility] Cocaine Screen, Ur Positive(A ) Negative LAB CHEMISTRY METHOD 5 3:20 PM EDT [facility] Opiate Screen, Ur Negative Negative LAB CHEMISTRY METHOD 5 3:20 PM EDT [facility] Cannabinoid (THC) Screen, Ur Positive(A ) Negative LAB CHEMISTRY METHOD 3:20 PM EDT [facility] Comment:Specimens from patie nts taking pantoprazole sodium (Protonix) have been shown to produce false positive results. Oxycodone Screen, Ur Negative Negative LAB CHEMISTRY METHOD 3:20 PM EDT [facility] Fentanyl, Ur Negative Negative LAB CHEMISTRY METHOD 3:20 PM EDT [facility] Urine Urine specimen obtained by clean catch procedure / Unknown Non-blood Collection / Unknown 02/12/2025 1:52 PM EDT 02/12/2025 2:38 PM EDT [facility] - 02/12/2025 3:20 PM EDT Assay [...] DO LAB URINE ORDERABLES Final Res ult [facility] [address] [place] [address], * Buprenorphine screen, urine (02/12/2025 1:52 PM EDT) Buprenorphine Screen Urine Negative Negative LAB CHEMISTRY METHOD 02/12/2025 3:20 PM EDT [facility] Urine Urine specimen obtained by clean catch procedure / Unknown Non-blood Collection / Unknown 02/12/2025 1:52 PM EDT 02/12/2025 2:38 PM EDT [facility] - 02/12/2025 3:20 PM EDT Assay cutoff 5 ng/mL Semi-quantitative assay for screening purposes only. Unconfirmed screening result should not be used for non-medical purposes. *ALTERNATE METHOD CONFIRMATION DONE UPON REQUEST ONLY* [facility] URINE ORDERABLES Final Res ult Performing Organization Address [facility]/ZIP Co de Phone Number [facility] [address] [place] [address], [place] [phone] * Methadone, urine (02/12/2025 1:52 PM EDT) Methadone Screen, Urine Negative Negative LAB CHEMISTRY METHOD 02/12/2025 3:20 PM EDT [facility] Comment: Assay cutoff 300 ng/mL Semi-quantitative assay for screening purposes only. Unconfirmed screening result should not be used for non-medical purposes. *ALTERNATE METHOD CONFIRMATION DONE UPON REQUEST ONLY* Urine Urine specimen obtained by clean catch procedure / Unknown Non-blood Collection / Unknown 02/12/2025 1:52 PM EDT 02/12/2025 2:38 PM EDT [facility] URINE ORDERABLES Final Res ult Performing Organization Address [facility]/ZIP Co de Phone Number [facility] [address] [place] [address], [place] [phone] * Phencyclidine, urine (02/12/2025 1:52 PM EDT) PCP Scrn, Ur Negative Negative LAB CHEMISTRY METHOD 02/12/2025 3:20 PM EDT [facility] Comment: Assay cutoff 25 ng/mL Semi-quantitative assay for screening purposes only. Unconfirmed screening result should not be used for non-medical purposes. *ALTERNATE METHOD CONFIRMATION DONE UPON REQUEST ONLY* Urine Urine specimen obtained by clean catch procedure / Unknown Non-blood Collection / Unknown 02/12/2025 1:52 PM EDT 02/12/2025 2:38 PM EDT Bernabe Young DO LAB URINE ORDERABLES Final Res ult [facility] [address] [place] [address], * POC , urine manually resulted (02/12/2025 1:52 PM EDT) HCG, Ur POC Negative Negative POC hCG Int QC Pass? Yes Yes Urine Urine specimen obtained by clean catch procedure / Unknown 02/12/2025 1:52 PM EDT Bernabe Young DO POINT OF CARE TEST ENTER/EDIT ORDERABLES Final Result * (ABNORMAL) CBC auto differential (02/12/2025 1:34 PM EDT) [facility] WBC 9.8 4.8 - 10.8 K/mcL LAB HEMETOLOGY METHOD 02/12/2025 2:48 PM EDT [facility] RBC 4.70 3.80 - 4.80 M/mcL LAB HEMETOLOGY METHOD 02/12/2025 2:48 PM EDT [facility] Hemoglobin 12.5 11.5 - 16.0 g/dL LAB HEMETOLOGY METHOD 02/12/2025 2:48 PM EDT [facility] Hematocrit 40.7 35.0 - 47.0 % LAB HEMETOLOGY METHOD 02/12/2025 2:48 PM EDT [facility] MCV 86.6 79.0 - 98.0 FL LAB HEMETOLOGY METHOD 02/12/2025 2:48 PM EDT [facility] MCH 26.6(L) 27.0 - 32.0 pcg LAB HEMETOLOGY METHOD 02/12/2025 2:48 PM EDT [facility] MCHC 30.7(L) 32.0 - 37.0 g/dL LAB HEMETOLOGY METHOD 02/12/2025 2:48 PM EDT [facility] RDW 16.4(H) 11.0 - 15.0 % LAB HEMETOLOGY METHOD 02/12/2025 2:48 PM EDT [facility] Platelets 300 130 - 400 K/mcL LAB HEMETOLOGY METHOD 02/12/2025 2:48 PM EDT [facility] MPV 10.7 7.0 - 11.0 FL LAB HEMETOLOGY METHOD 02/12/2025 2:48 PM EDT [facility] NRBC 0.0 <1.0 % LAB HEMETOLOGY METHOD 02/12/2025 2:48 PM EDT [facility] NRBC Absolute 0.00 <0.10 K/mcL LAB HEMETOLOGY METHOD 02/12[facility]2025 2:[facility] Neutrophils Relative 68.5 % LAB HEMETOLOGY METHOD 02/12/2025 2:[facility] Lymphocytes Relative 20.9 % LAB HEMETOLOGY METHOD 02/12/2025 2:48 PM EDT [facility] Monocytes Relative 6.4 % LAB HEMETOLOGY METHOD 02/12/2025 2:48 PM [facility] Eosinophils Relative 3.6 % LAB HEMETOLOGY METHOD 02/12/2025 2:48 PM [facility] Basophils Relative 0.3 % LAB HEMETOLOGY METHOD 02/12/2025 2:48 PM EDT [facility] Immature Granulocytes Relative 0.3 % LAB HEMETOLOGY METHOD 02/12/2025 2:48 PM EDT [facility] Neutrophils Absolute 6.70 1.50 - 7.00 K/mcL LAB HEMETOLOGY METHOD 02/12/2025 2:48 PM EDT [facility] Lymphocytes Absolute 2.04 1.00 - 5.00 K/mcL LAB HEMETOLOGY METHOD 02/12/2025 2:48 PM EDT [facility] Monocytes Absolute 0.63 0.20 - 1.00 K/mcL LAB HEMETOLOGY METHOD 02/12/2025 2:48 PM EDT [facility] Eosinophils Absolute 0.35 0.00 - 0.50 K/[facility] LAB HEMETOLOGY METHOD 02/12/2025 2:48 PM EDT [facility] Basophils Absolute 0.03 0.00 - 0.20 K/[facility] LAB HEMETOLOGY METHOD 02/12/2025 2:48 PM EDT [facility] Immature Granulocytes Absolute 0.03 0.00 - 0.03 K/[facility] LAB HEMETOLOGY METHOD 02/12/2025 2:48 PM EDT [facility] Blood Venous blood specimen / Unknown Venipuncture / Unknown 02/12/2025 1:34 PM EDT 02/12/2025 2:38 PM EDT [facility] BLOOD ORDERABLES Final Res ult Performing Organization Address City/[facility]/ZIP Co de Phone Number [facility] [address] [place] [address], [place] [phone] * Ethanol (02/12/2025 1:34 PM EDT) Ethanol Level 3 0 - 10 mg/dL LAB CHEMISTRY METHOD 02/12/2025 3:19 PM EDT [facility] Blood Venous blood specimen / Unknown Venipuncture / Unknown 02/12/2025 1:34 PM EDT 02/12/2025 2:38 PM EDT [facility] LAB BLOOD ORDERABLES Final Res ult [facility] [address] [place] [address], [place] [phone] * (ABNORMAL) Acetaminophen level (02/12/2025 1:34 PM EDT) Acetaminophen Level <2.0(L) 10.0 - 30.0 mcg/mL LAB CHEMISTRY METHOD 02/12/2025 3:49 PM EDT [facility] Blood Venous blood specimen / Unknown Venipuncture / Unknown 02/12/2025 1:34 PM EDT 02/12/2025 2:38 PM EDT [facility] BLOOD ORDERABLES Final Res ult Performing Organization Address [facility]/ZIP Co de Phone Number [facility] [address] [place] [address], [place] [phone] * (ABNORMAL) Salicylate level (02/12/2025 1:34 PM EDT) Salicylate Level <1.7(L) 2.0 - 29.0 mg/dL LAB CHEMISTRY METHOD 02/12/2025 3:21 PM EDT [facility] Blood Venous blood specimen / Unknown Venipuncture / Unknown 02/12/2025 1:34 PM EDT 02/12/2025 2:38 PM EDT [facility] LAB BLOOD ORDERABLES Final Res ult Performing Organization Address [facility]/ZIP Co de Phone Number [facility] [address] [place] [address], [place] [phone] * (ABNORMAL) Comprehensive metabolic panel (02/12/2025 1:34 PM EDT) Sodium 134 133 - 145 mmol/L LAB CHEMISTRY METHOD 02/12/2025 3:21 PM EDT [facility] Potassium 4.0 3.5 - 5.5 mmol/L LAB CHEMISTRY METHOD 02/12/2025 3:21 PM EDT [facility] Chloride 101 96 - 110 mmol/L LAB CHEMISTRY METHOD 02/12/2025 3:21 PM [facility] CO2 27 21 - 32 mmol/L LAB CHEMISTRY METHOD 02/12/2025 3:21 PM [facility] Anion Gap 6 3 - 11 LAB CHEMISTRY METHOD 02/12/2025 3:21 PM [facility] Glucose 112(H) 70 - 100 mg/dL LAB CHEMISTRY METHOD 02/12/2025 3:21 PM [facility] BUN 12 5 - 25 mg/dL LAB CHEMISTRY METHOD 02/12/2025 3:21 PM [facility] Creatinine 1.17(H) 0.50 - 1.10 mg/dL LAB CHEMISTRY METHOD 02/12/2025 3:21 PM [facility] eGFR 61 >=60 mL/min/1. 73m2 LAB CHEMISTRY METHOD 02/12/2025 3:21 PM [facility] Comment:Calculation based on the Chronic Kidney Disease Epidemiology Collaboration (CKD-EPI) equation refit without adjustment for race. BUN/Creatinine Ratio 10.3 LAB CHEMISTRY METHOD 02/12/2025 3:21 PM [facility] Calcium 8.8 8.5 - 10.5 mg/dL LAB CHEMISTRY METHOD 02/12/2025 3:21 PM [facility] AST (SGOT) 24 10 - 42 unit/L LAB CHEMISTRY METHOD 02/12/2025 3:21 PM [facility] ALT (SGPT) 15 10 - 60 unit/L LAB CHEMISTRY METHOD 02/12/2025 3:21 PM [facility] Alkaline Phosphatase 83 42 - 121 unit/L LAB CHEMISTRY METHOD 02/12/2025 3:21 PM [facility] Total Protein 7.1 6.0 - 8.0 g/dL LAB CHEMISTRY METHOD 02/12/2025 3:21 PM [facility] Albumin 3.2 3.2 - 5.0 g/dL LAB CHEMISTRY METHOD 02/12/2025 3:21 PM EDT [facility] Total Bilirubin 0.3 0.0 - 1.4 mg/dL LAB CHEMISTRY METHOD 02/12/2025 3:21 PM EDT [facility] Blood Venous blood specimen / Unknown Venipuncture / Unknown 02/12/2025 1:34 PM EDT 02/12/2025 2:38 PM EDT us Bernabe Young DO LAB BLOOD ORDERABLES Final Res ult [facility] [address] [place] [address], from Last 3 Months Insurance MEDICAID - [place] Care Teams Cracking Unit Operator Relationship Specialty Start Date End Date Physician, No Pcp PCP - General 02/12/25
--- NOTE | 2025-02-13 17:47 | PC.ADMIT ---
Pt arrived at 1514 from [facility] ED. She presented with insomnia secondary to crack/cocaine binge that lasted about a week (per report). Upon arrival to the unit pt was tearful and had a hard time expressing self. Pt is at this time a poor historian. Per crisis she recently attended detox and then went to stay with grandparents, who raised her. Pt began using again and grandparents kicked her out. Pt reports she tried to go to a homeless residential but was not able, reason unclear. In [facility] ED pt only received 2mg ativan last night 02/12/25 to help her sleep. She reports not being on any meds in a long time . She denies SI/HI/AVH at this time. Pt has no known medical issues. Pt does have at least one child that she her no custody of (per crisis report), also does have a trauma history. Years ago she was enrolled at [employer] for [employer], but only was able to complete two years d/t trauma. Pt has settled into the unit well and has become much more comfortable making her needs known. She reports she smokes regularly, drinks occasionally. This last week she has been on a binge mostly crack, not much ETOH and does not think she will withdrawal from alcohol. Last drink 2-3 days ago. She quitworks and addiction consult referral at this time. She signed a CV with [facility] and is on 15min checks.
[2025-02-13 20:00] VITALS: BP 152/66; PULSE 98; RESP 18; TEMP 36.4; O2SAT 99
[2025-02-14 08:00] VITALS: BP 125/68; PULSE 91; TEMP 36.4; O2SAT 99
--- NOTE | 2025-02-14 08:30 | P.CONHOSP_ITS ---
History of Present Illness Data of Consult Service Date: 02/14/25 Primary Care Provider: Unknown Physician HPI Reason for consult: Medical consult 39-year-old female with a past medical history of anxiety, depression, and PTSD as well as cocaine misuse, presented to [facility] for evaluation after she presented with a homeless [facility] for restlessness. Tox screen was positive for cocaine and marijuana. CBC without anemia or leukocytosis and BMP with slight elevation in creatinine otherwise within normal limits. On exam she denies any medical concerns. She is somnolent on exam, easily arousable. Denies shortness of breath, dizziness lightheadedness or any other concerning symptoms. Review of Systems 2 Review of Systems: Denies any shortness of breath, chest pain, palpitations, dizziness, lightheadedness, headaches, dysuria, abdominal pain or discomfort, nausea, vomiting or diarrhea. Denies Chills, body aches, muscle aches, fatigue or weight loss. PMFSH Social History Household Members: None Housing: Homeless Do you presently have visiting nurse or other home services: No Patient Tobacco Use Status: Current everyday Tobacco user Tobacco use type: Cigarette Cigarette Packs Per Day: 0 Cigarettes Per Day: 0.5 Smoked in Last 30 Days: Yes Patient Interested in Nicotine Replacement: Yes Patient Given Instructions on How to Stop Smoking: No Currently Displaying Signs/Symptoms of Drug Intoxication Withdrawal: No Do you feel safe in your current relationship?: No Current Relationship Is there a partner from a previous relationship who is making you feel unsafe now?: No Are you made to feel afraid or neglected: Yes (pt reports she is homeless and doesnt sleep d/t safety) Spiritual Healthcare Practices: n/a Cheondoism Healthcare Practices: n/a Cultural Healthcare Practices: n/a Advance Directives: No Advance Directives Information Provided: Yes Do you have thoughts of harming others: None Do you have a plan to hurt others: No Plan Recently lost weight without trying: No How much weight loss: Not applicable Eating poorly because of decreased appetite: No Nutrition screen score: 0 Nutrition Risks: No Nutritional Risk Patient : No : No Poor oral hygiene: No service: No Sexual orientation: Straight/Heterosexual Meds Allergies Allergy/AdvReac Type Severity Reaction Status Date / Time No Known Allergies Allergy Verified 02/13/25 15:21 Active Medications: Current Medications Acetaminophen (Acetaminophen 325 Mg Tablet) 650 mg PO Q6H PRN PRN Reason: Headache/Pain, Scale 1-10 Last Admin: 02/13/25 20:19 Dose: 650 mg Al Hydroxide/Mg Hydroxide (Magnesium Hydrox/Alum Hydrox 30 Ml Oral.Susp) 30 ml PO Q6H PRN PRN Reason: Heartburn/Nausea Hydroxyzine HCl (Hydroxyzine Hcl 25 Mg Tablet) 25 mg PO Q6H PRN PRN Reason: mild anxiety Last Admin: 02/13/25 20:19 Dose: 25 mg Magnesium Hydroxide (Milk Of Magnesia 30 Ml Oral.Susp) 30 ml PO DAILY PRN PRN Reason: Constipation Nicotine (Nicotine 21 Mg Patch.Td24) 21 mg TRANSDERMA DAILY PRN PRN Reason: smoking cessation Nicotine Polacrilex (Nicotine Polacrilex 2 Mg Gum) 4 mg BUCCAL Q2H PRN PRN Reason: Nicotine Cravings Olanzapine (Olanzapine 5 Mg Tablet) 5 mg PO TID PRN PRN Reason: agitation Last Admin: 02/13/25 20:19 Dose: 5 mg Trazodone HCl (Trazodone Hcl 50 Mg Tablet) 50 mg PO BEDTIME MRX1 PRN PRN Reason: Insomnia Home Medications ?Medication ?Instructions ?Recorded ?Confirmed ?Last Taken ?Type No Known Home Meds 02/13/25 02/13/25 Un known History Physical Exam 2 Vital Signs and Narrative: Vital Signs: Last Vital Signs Temp 97.6 F 02/13/25 20:00 Pulse 98 02/13/25 20:00 Resp 18 02/13/25 20:00 BP 152/66 H 02/13/25 20:00 Pulse Ox 99 02/13/25 20:00 O2 Del Method Room Air 02/13/25 20:00 BMI result Body Mass Index 47.7 CONST: Alert and oriented, in NAD. Well nourished HEENT: Normocephalic, atraumatic, MMM, Eyes clear, Neck supple RESP: Lungs clear, RRR even and regular HEART:,RRR, S1, S2. No edema GI:Abdomen Soft NT, ND. + BS times four :Deferred SKIN: Warm dry and intact, no visible lesions or rashes NEURO:CN II-XII Intact bilaterally, Sensation intact. Speech clear PSYCH: Normal affect Results Labs 02/14/25 11:49 Assessment and Plan (1) MDD (major depressive disorder): Status: Acute Plan 39-year-old female with a past medical history of anxiety, depression, and PTSD as well as cocaine misuse, presented to [facility] for evaluation after she presented with a homeless [facility] for restlessness. She is admitted here for mood stabilization. ADHD/PTSD/cocaine use disorder/major depressive disorder Treatment per psychiatric team Thank you for allowing me to participate in the care of this patient. Will follow as needed, please notify medical provider with any changes in condition or concerns.
[2025-02-14 09:05] LABS: Hemoglobin A1C 151.9439 umol/L; Total Hemoglobin (HGBA1C) 3738.7039 umol/L
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
[2025-02-14 12:18] LABS: Alanine Aminotransferase 10 U/L (0-31); Albumin Level 3.8 g/dL (3.5-5.0); Alkaline Phosphatase 77 U/L (39-117); Anion Gap 11 (12-20); Aspartate Amino Transferase 37 U/L (5-31); Blood Urea Nitrogen 10 mg/dL (9-16); Calcium 9.1 mg/dL (8.4-10.2); Carbon Dioxide 35 mmol/L (22-29); Chloride 101 mmol/L (96-108); Cholesterol 138 mg/dL (<200); Creatinine Clr Calc Pharmacy 136.3; Estimated Glomerular Filt Rate > 60; HDL Cholesterol 31 mg/dL (>40); Potassium 4.6 mmol/L (3.3-5.1); Sodium 142 mmol/L (135-145); Total Protein 7.5 g/dL (6.5-8.0); Triglycerides 126 mg/dL (<150)
[2025-02-14 20:00] VITALS: BP 115/68; PULSE 101; TEMP 36.6; O2SAT 98
[2025-02-15 08:00] VITALS: BP 132/67; PULSE 83; RESP 18; TEMP 36.4; O2SAT 97
--- NOTE | 2025-02-15 14:19 | HO.ADDICTCON ---
History of Present Illness Date of Service: 02/15/25 Chief Complaint: decompensation Reason for Consult: cocaine use disorder Sources of Information: chart reviewed HPI Narrative: Patient is a 39 year old female admitted to unit with worsening depression and ongoing stimulant use. Consult requested secondary to stimulant use. Attempted to meet with patient, however she was sleeping and politely declined to meet stating, I'm okay, thank you . Chart review shows patient was initiated on Baclofen 10mg BID to address cravings. When asked if she felt okay with the medication, patient nodded yes. Past Psychiatric History: [facility] x5 Hx of treatment programs for substance use ([facility]). No PHP, IOP or respite treatments hx. Had providers through [facility] but has not seen for months. Stopped taking meds for months Hx of Buspar, Adderall. Medical Evaluation Reviewed: Yes Review of Systems Constitutional: Reports as per HPI Diagnostics Vital Signs (24Hr): Vital Signs - 24 hr 02/14/25 20:00 02/15/25 08:00 Temperature 97.9 F 97.6 F Pulse Rate 101 H 83 Respiratory Rate 18 Blood Pressure 115/68 132/67 Pulse Oximetry 98 97 Oxygen Delivery Method Room Air Room Air BMI result Body Mass Index 47.7 Labs 02/14/25 11:49 Labs: Laboratory Results - last 48 hr 02/14/25 02/14/25 08:28 11:49 Sodium 142 Potassium 4.6 Chloride 101 Carbon Dioxide 35 H Anion Gap 11 L BUN 10 Creatinine 0.86 Estim Creat Clear Calc 136.3 Estimated GFR > 60 Random Glucose 97 Estimat Average Glucose 123 Hemoglobin A1c % 5.9 Calcium 9.1 Total Bilirubin 0.1 AST 37 H ALT 10 Alkaline Phosphatase 77 Total Protein 7.5 Albumin 3.8 Triglycerides 126 Cholesterol 138 LDL Cholesterol, Calc 82 HDL Cholesterol 31 L TSH 0.60 Mental Status Exam Mental Status Exam Narrative: sleeping, comfortable. no diaphoresis or restlessness noted. Medications Medications Current Medications Acetaminophen (Acetaminophen 325 Mg Tablet) 650 mg PO Q6H PRN PRN Reason: Headache/Pain, Scale 1-10 Last Admin: 02/15/25 09:06 Dose: 650 mg Al Hydroxide/Mg Hydroxide (Magnesium Hydrox/Alum Hydrox 30 Ml Oral.Susp) 30 ml PO Q6H PRN PRN Reason: Heartburn/Nausea Baclofen (Baclofen 10 Mg Tablet) 10 mg PO BID [facility] Last Admin: 02/15/25 09:02 Dose: 10 mg Buspirone HCl (Buspirone Hcl 10 Mg Tablet) 10 mg PO BID [facility] Last Admin: 02/15/25 09:02 Dose: 10 mg Duloxetine HCl (Duloxetine Hcl 20 Mg Capsule.Dr) 20 mg PO DAILY [facility] Last Admin: 02/15/25 09:02 Dose: 20 mg Hydroxyzine HCl (Hydroxyzine Hcl 50 Mg Tablet) 50 mg PO Q6H PRN PRN Reason: mild anxiety Magnesium Hydroxide (Milk Of Magnesia 30 Ml Oral.Susp) 30 ml PO DAILY PRN PRN Reason: Constipation Melatonin (Melatonin 3 Mg Tablet) 9 mg PO BEDTIME [facility] Last Admin: 02/14/25 20:46 Dose: 9 mg Nicotine (Nicotine 21 Mg Patch.Td24) 21 mg TRANSDERMA DAILY PRN PRN Reason: smoking cessation Nicotine Polacrilex (Nicotine Polacrilex 2 Mg Gum) 4 mg BUCCAL Q2H PRN PRN Reason: Nicotine Cravings Olanzapine (Olanzapine 5 Mg Tablet) 5 mg PO TID PRN PRN Reason: agitation Last Admin: 02/13/25 20:19 Dose: 5 mg Trazodone HCl (Trazodone Hcl 50 Mg Tablet) 50 mg PO BEDTIME MRX1 PRN PRN Reason: Insomnia Allergies Allergies Allergy/AdvReac Type Severity Reaction Status Date / Time No Known Allergies Allergy Verified 02/13/25 15:21 Assessment & Plan Assessment & Plan (1) Cocaine use disorder: Status: Acute Code(s): F14.10 - Cocaine abuse, uncomplicated Assessment and Plan: Continue baclofen as ordered, dose can be increased as tolerated by patient allow patient to rest as she is likely withdrawing from stimulant use. Encouragte hydration and food when possible, but otherwise allow to sleep for the first day or 2 hospital chief financial officer to follow up and discuss StUD supports Total time managing care of this patient today _15___ minutes. PMFSH Social History Social History Household Members: None Housing: Homeless Do you presently have visiting nurse or other home services: No Patient Tobacco Use Status: Current everyday Tobacco user Tobacco use type: Cigarette Cigarette Packs Per Day: 0 Cigarettes Per Day: 0.5 Smoked in Last 30 Days: Yes Patient Interested in Nicotine Replacement: Yes Patient Given Instructions on How to Stop Smoking: No Currently Displaying Signs/Symptoms of Drug Intoxication Withdrawal: No Do you feel safe in your current relationship?: No Current Relationship Is there a partner from a previous relationship who is making you feel unsafe now?: No Are you made to feel afraid or neglected: Yes (pt reports she is homeless and doesnt sleep d/t safety) Spiritual Healthcare Practices: n/a Jehovah'S Witness Healthcare Practices: n/a Cultural Healthcare Practices: n/a Advance Directives: No Advance Directives Information Provided: Yes Do you have thoughts of harming others: None Do you have a plan to hurt others: No Plan Recently lost weight without trying: No How much weight loss: Not applicable Eating poorly because of decreased appetite: No Nutrition screen score: 0 Nutrition Risks: No Nutritional Risk Patient : No : No Poor oral hygiene: No service: No Sexual orientation: Straight/Heterosexual
[2025-02-15 19:54] VITALS: BP 86/55; PULSE 76; TEMP 36.4; O2SAT 94
--- NOTE | 2025-02-15 20:08 | HO.PSYCHPN ---
Subjective Subjective Date of Service: 02/15/25 Reason For Visit: decompensation Subjective Notes: Conditional Voluntary Healthcare Proxy: No Guardianship: No Medical Problems Affecting Mental Status: No Interim History: Medical record and nursing notes reviewed; case discussed during rounds with team/nursing staff, and met with patient for supportive therapy/psychoeducation, as well as medication management. Meet with patient in room this afternoon while patient in bed napping. Arousable during assessment. Patient did not remember she was seen by instructional services specialist prior to meeting with this provider. Denies safety concerns, report 3-08/24 for anxiety and depression. Wearing the same dress as yesterday. Intermittently visible in common areas, pleasant upon approach. She is not sure if she wants to go to treatment program. Tolerate well with meds. Continue to be tired. Nursing is aware that it is ok for patient to use Hospital CPAP at night for sleep. Educate patient on elevated her head with more pillows while sleeping. Medication Compliance: Yes Side effects from medications: No Attending Groups: Intermittent Review of Systems Acute medical concerns: No Medical Review of Systems: unchanged Review of Systems Review of Systems Constitutional: Denies fatigue and Denies fever(s) Cardiovascular: Denies chest pain and Denies dyspnea Respiratory: Denies dyspnea Gastrointestinal: Denies abdominal pain Psychiatric: denies suicidal ideation Endocrine: Denies fatigue Yes all other systems are reviewed and are negative Mental Status Exam Mental Status Exam Narrative: Patient is alert and oriented x4; behavior is cooperative, mild to moderate anxiety and depression; patient is not in distress; dressed in casual attire with kempt hair and adequate hygiene; mood is described as depressed and anxious , affect congruent; eye contact appropriate mostly close during asessment as she was napping; Speech is normal rate, volume and prosody and not pressured, no psychomotor agitation/retardation present; thought process is organized and goal directed; Thought content is WNL, pertinent to relevant topics and without any delusional content, paranoid ideation or grandiosity; denies any SI/SIB/HI. Denies AH and there is no evidence of perceptual disturbance. Patient's insight and judgment poor. Diagnostics Vital Signs (24Hr): Vital Signs - 24 hr 02/15/25 08:00 02/15/25 19:54 Temperature 97.6 F 97.5 F Pulse Rate 83 76 Respiratory Rate 18 Blood Pressure 132/67 86/55 L Pulse Oximetry 97 94 Oxygen Delivery Method Room Air Room Air BMI result Body Mass Index 47.7 Labs 02/14/25 11:49 Labs: Laboratory Results - last 48 hr 02/14/25 02/14/25 08:28 11:49 Sodium 142 Potassium 4.6 Chloride 101 Carbon Dioxide 35 H Anion Gap 11 L BUN 10 Creatinine 0.86 Estim Creat Clear Calc 136.3 Estimated GFR > 60 Random Glucose 97 Estimat Average Glucose 123 Hemoglobin A1c % 5.9 Calcium 9.1 Total Bilirubin 0.1 AST 37 H ALT 10 Alkaline Phosphatase 77 Total Protein 7.5 Albumin 3.8 Triglycerides 126 Cholesterol 138 LDL Cholesterol, Calc 82 HDL Cholesterol 31 L TSH 0.60 Medications Medications Current Medications Acetaminophen (Acetaminophen 325 Mg Tablet) 650 mg PO Q6H PRN PRN Reason: Headache/Pain, Scale 1-10 Last Admin: 02/15/25 09:06 Dose: 650 mg Al Hydroxide/Mg Hydroxide (Magnesium Hydrox/Alum Hydrox 30 Ml Oral.Susp) 30 ml PO Q6H PRN PRN Reason: Heartburn/Nausea Baclofen (Baclofen 10 Mg Tablet) 10 mg PO BID [facility] Last Admin: 02/15/25 09:02 Dose: 10 mg Buspirone HCl (Buspirone Hcl 10 Mg Tablet) 10 mg PO BID [facility] Last Admin: 02/15/25 09:02 Dose: 10 mg Duloxetine HCl (Duloxetine Hcl 20 Mg Capsule.Dr) 20 mg PO DAILY [facility] Last Admin: 02/15/25 09:02 Dose: 20 mg Hydroxyzine HCl (Hydroxyzine Hcl 50 Mg Tablet) 50 mg PO Q6H PRN PRN Reason: mild anxiety Magnesium Hydroxide (Milk Of Magnesia 30 Ml Oral.Susp) 30 ml PO DAILY PRN PRN Reason: Constipation Melatonin (Melatonin 3 Mg Tablet) 9 mg PO BEDTIME [facility] Last Admin: 02/14/25 20:46 Dose: 9 mg Nicotine (Nicotine 21 Mg Patch.Td24) 21 mg TRANSDERMA DAILY PRN PRN Reason: smoking cessation Nicotine Polacrilex (Nicotine Polacrilex 2 Mg Gum) 4 mg BUCCAL Q2H PRN PRN Reason: Nicotine Cravings Olanzapine (Olanzapine 5 Mg Tablet) 5 mg PO TID PRN PRN Reason: agitation Last Admin: 02/13/25 20:19 Dose: 5 mg Trazodone HCl (Trazodone Hcl 50 Mg Tablet) 50 mg PO BEDTIME MRX1 PRN PRN Reason: Insomnia Allergies Allergies Allergy/AdvReac Type Severity Reaction Status Date / Time No Known Allergies Allergy Verified 02/13/25 15:21 Assessment & Plan Assessment & Plan (1) Cocaine use disorder: Status: Acute Code(s): F14.10 - Cocaine abuse, uncomplicated Assessment and Plan: (2) MDD (major depressive disorder): Status: Acute Code(s): F32.9 - Major depressive disorder, single episode, unspecified (3) PTSD (post-traumatic stress disorder): Status: Acute Code(s): F43.10 - Post-traumatic stress disorder, unspecified (4) ADHD: Status: Acute Code(s): F90.9 - Attention-deficit hyperactivity disorder, unspecified type Plan HPI: patient is a 39 y.o single, [place] speaking female with hx of MDD, PTSD, anxiety and ADHD, sleep apnea with chronic back pain who presented to [facility] from [facility] d[facility]t restless appearing and had stated that she had not been sleeping for several days. Catherine reports that she has been homeless and had been staying with family member but was kicked out. She started smoking crack /ANA MARIA, and drinking again. This causing her to feel upset and sad. Discuss with patient regarding meds. Patient agrees with re-start of Buspar, start on Cymbalta for mood/pain. Melatonin for insomnia, and baclofen 10mg BID for pain/ W/D/craving. Plan to get back on meds, stay sober, working on self esteem. Patient is interested in long team treatment program. Formulation/clinical reasoning: Increased in substacne use (ANA MARIA/Crack, alcohol, and weed, increased in depression, anxiety, poor sleep and poor appetite, Increased in SI. Currently not on meds, no current OP provider. Hx of MDD, ANA MARIA use D/O, ADHD, PTSD. Given the above information, patient would benefit in restrictive environment for safety, re-start on meds, and refer patient to Treatment program as well as OP psychiatric services to maintain sobriety. Hospital course: 02/14/25 Bacclofen 10mg BID for W/D or craving for ANA MARIA. Melatonin 9 mg at HS for insomnia Buspar 10mg BID for mood/anxiety Cymbalta 20mg daily for mood/pain. Will have patient to use hospital CPAP at night for sleep apnea. Trazodone, and Hydroxyzine PRN available for insomnia, and anxiety 02/15/25: Meet with patient in room this afternoon while patient in bed napping. Arousable during assessment. Patient did not remember she was seen by instructional services specialist prior to meeting with this provider. Denies safety concerns, report 3-08/24 for anxiety and depression. Wearing the same dress as yesterday. Intermittently visible in common areas, pleasant upon approach. She is not sure if she wants to go to treatment program. Tolerate well with meds. Continue to be tired. Nursing is aware that it is ok for patient to use Hospital CPAP at night for sleep. Educate patient on elevated her head with more pillows while sleeping. Patient seen by Addiction team. Per addiction team note/plan Continue baclofen as ordered, dose can be increased as tolerated by patient Allow patient to rest as she is likely withdrawing from stimulant use. Encouragte hydration and food when possible, but otherwise allow to sleep for the first day or 2 idea man to follow up and discuss StUD supports. Plan Patient on 15 minute checks for safety. Admitted to M5. CV. Work with treatment team to do collateral for CSS/CCS if possible for aftercare. Refer to patient to plastic surgery specialist:ssen on 02/15/25. Patient seen by Hospitalist on 02/14/25. [place] +ANA MARIA, THC. BAL negative. CMP and other lab results are unremarkable in the ED. Patient educated on: diagnosis, medication risk/benefits, substance abuse and therapeutic strategies Informed Consent: understands and further education needed Reason for continued inpatient stay Substantial Risk for: med/psych decompensation Time Spent With Patient Time: Total time managing care of this patient today ____ minutes.
[2025-02-15 20:26] VITALS: BP 129/58
[2025-02-16 08:00] VITALS: BP 114/71; PULSE 68; TEMP 36.4; O2SAT 98
--- NOTE | 2025-02-16 12:22 | HO.PM.IMPN ---
Subjective Subjective Date of Service: 02/16/25 Interval History: Patient is seen for reports of left tooth pain. Patient has 2 carious teeth with multiple fillings in her upper left side of her jaw. + gum inflammation, no lymphadenopathy. Denies fever or chills. Denies shortness of breath or chest pain. Reports that she needs to have the teeth pulled. Has not been on recent antibiotic therapy. Denies any other concerns. No difficulty chewing. Reports that the pain prevents her from laying on her left side. Review of Systems Denies any shortness of breath, chest pain, palpitations, dizziness, lightheadedness, headaches, dysuria, abdominal pain or discomfort, nausea, vomiting or diarrhea. Denies Chills or fever. Physical Exam Exam: Exam: CONST: Alert and oriented, in NAD. Well nourished HEENT: Normocephalic, atraumatic, MMM, Eyes clear, Neck supple, no lymphadenopathy. Redness and inflammation to upper left gumline. RESP: Lungs clear, RRR even and regular HEART:,RRR, S1, S2. No edema GI:Abdomen Soft NT, ND. + BS times four :Deferred SKIN: Warm dry and intact, no visible lesions or rashes NEURO:CN II-XII Intact bilaterally, Sensation intact. Speech clear PSYCH: Flat affect Vital Signs: Vital Signs: Last Vital Signs Temp 97.5 F 02/16/25 08:00 Pulse 68 02/16/25 08:00 Resp 18 02/15/25 08:00 BP 114/71 02/16/25 08:00 Pulse Ox 98 02/16/25 08:00 O2 Del Method Room Air 02/16/25 08:00 BMI result Body Mass Index 47.7 Objective Data Active Medications Acetaminophen (Acetaminophen 325 Mg Tablet) 650 mg PO Q6H PRN PRN Reason: Headache/Pain, Scale 1-10 Last Admin: 02/16/25 08:11 Dose: 650 mg Documented By: WALDO Al Hydroxide/Mg Hydroxide (Magnesium Hydrox/Alum Hydrox 30 Ml Oral.Susp) 30 ml PO Q6H PRN PRN Reason: Heartburn/Nausea Baclofen (Baclofen 10 Mg Tablet) 10 mg PO BID GLADIS Last Admin: 02/16/25 08:11 Dose: 10 mg Documented By: WALDO Buspirone HCl (Buspirone Hcl 10 Mg Tablet) 10 mg PO BID [facility] Last Admin: 02/16/25 08:11 Dose: 10 mg Documented By: WALDO Duloxetine HCl (Duloxetine Hcl 20 Mg Capsule.) 20 mg PO DAILY [facility] Last Admin: 02/16/25 08:11 Dose: 20 mg Documented By: WALDO Hydroxyzine HCl (Hydroxyzine Hcl 50 Mg Tablet) 50 mg PO Q6H PRN PRN Reason: mild anxiety Ibuprofen (Ibuprofen 600 Mg Tablet) 600 mg PO Q8H PRN PRN Reason: severe back pain Last Admin: 02/16/25 10:30 Dose: 600 mg Documented By: WALDO Magnesium Hydroxide (Milk Of Magnesia 30 Ml Oral.Susp) 30 ml PO DAILY PRN PRN Reason: Constipation Melatonin (Melatonin 3 Mg Tablet) 9 mg PO BEDTIME [facility] Last Admin: 02/15/25 20:13 Dose: 9 mg Documented By: BRENDA Nicotine (Nicotine 21 Mg Patch.Td24) 21 mg TRANSDERMA DAILY PRN PRN Reason: smoking cessation Nicotine Polacrilex (Nicotine Polacrilex 2 Mg Gum) 4 mg BUCCAL Q2H PRN PRN Reason: Nicotine Cravings Olanzapine (Olanzapine 5 Mg Tablet) 5 mg PO TID PRN PRN Reason: agitation Last Admin: 02/13/25 20:19 Dose: 5 mg Documented By: VENKAT Trazodone HCl (Trazodone Hcl 50 Mg Tablet) 50 mg PO BEDTIME MRX1 PRN PRN Reason: Insomnia Labs 02/14/25 11:49 Assessment and Plan (1) Dental abscess: Status: Acute Plan 39-year-old female with a past medical history of anxiety, depression, and PTSD as well as cocaine misuse, presented to [facility] for evaluation after she presented with a homeless longterm for restlessness. She is admitted here for mood stabilization. ADHD/PTSD/cocaine use disorder/major depressive disorder Treatment per psychiatric team Tooth abscess Patient with 2 teeth intact to left upper jaw with multiple fillings and dental caries Evidence of infection including redness, inflammation and pain We will treat with Augmentin 875 twice daily for 7 days Patient will need outpatient follow up for tooth extraction. Thank you for allowing me to participate in the care of this patient. Will follow as needed, please notify medical provider with any changes in condition or concerns. Quality Stroke Does the patient have a stroke diagnosis?: No VTE Prior VTE?: No VTE Risk Level:: Medical - low VTE Device Contraindication: Treatment Not Indicated VTE Drug Contraindication: Treatment Not Indicated
--- NOTE | 2025-02-16 17:06 | P.PNPSI_ITS ---
Subjective Subjective Date of Service: 02/16/25 Reason For Visit: decompensation Subjective Notes: Conditional Voluntary Healthcare Proxy: No Guardianship: No Medical Problems Affecting Mental Status: No Interim History: Medical record and nursing notes reviewed; case discussed during rounds with team/nursing staff, and met with patient for supportive therapy/psychoeducation, as well as medication management. Patient slept slept well, using CPAP last night, got a good solid 7 hours sleep. Visible in common areas, playing games in the kitchen with peers and attended groups. Continue to improve in mood, less anxious and depressed, brighter affect. Denies craving for ANA MARIA/Crack. report sever tooth pain. Seen by hospitalist and started on ABT. Patient requests to have appointment with dentist to have the tooth extracted once discharge. Patient declined residential program, want to go to longterm where she is aware of ANA MARIA/Crack use around but feel like she can get support from porter sample case there. Denies SI/SIB/HI/AVH. Discuss with patient regarding Cymbalta, she is receptive with plan to increase up to 30mg daily for depression/pain. Medication Compliance: Yes Side effects from medications: No Attending Groups: Yes Review of Systems Acute medical concerns: No Medical Review of Systems: unchanged Review of Systems Review of Systems Constitutional: Denies fatigue and Denies fever(s) Cardiovascular: Denies chest pain and Denies dyspnea Respiratory: Denies dyspnea Gastrointestinal: Denies abdominal pain Psychiatric: denies suicidal ideation Endocrine: Denies fatigue Report sever tooth pain. Yes all other systems are reviewed and are negative Mental Status Exam Mental Status Exam Narrative: Patient is alert and oriented x4; behavior is cooperative, mild to moderate anxiety and depression; patient is not in distress; dressed in casual attire with kempt hair and adequate hygiene; mood is described as better , affect congruent, brighter; eye contact appropriate; Speech is normal rate, volume and prosody and not pressured, no psychomotor agitation/retardation present; thought process is organized and goal directed; Thought content is WNL, pertinent to relevant topics and without any delusional content, paranoid ideation or grandiosity; denies any SI/SIB/HI. Denies AH and there is no evidence of perceptual disturbance. Patient's insight and judgment improved. Diagnostics Vital Signs (24Hr): Vital Signs - 24 hr 02/15/25 19:54 02/15/25 20:26 02/16/25 08:00 Temperature 97.5 F 97.5 F Pulse Rate 76 68 Blood Pressure 86/55 L 129/58 L 114/71 Pulse Oximetry 94 98 Oxygen Delivery Method Room Air Room Air BMI result Body Mass Index 47.7 Labs 02/14/25 11:49 Medications Medications Current Medications Acetaminophen (Acetaminophen 325 Mg Tablet) 650 mg PO Q6H PRN PRN Reason: Headache/Pain, Scale 1-10 Last Admin: 02/16/25 14:39 Dose: 650 mg Al Hydroxide/Mg Hydroxide (Magnesium Hydrox/Alum Hydrox 30 Ml Oral.Susp) 30 ml PO Q6H PRN PRN Reason: Heartburn/Nausea Amoxicillin/Clavulanate Potassium (Amoxicillin/Potassium Clav 875 Mg Tablet) 875 mg PO BID [facility] Stop: 02/23/25 09:01 Baclofen (Baclofen 10 Mg Tablet) 10 mg PO BID [facility] Last Admin: 02/16/25 08:11 Dose: 10 mg Benzocaine (Benzocaine 20 % Oral Gel 9 Gm Tube) 1 appl MUCOUS MEM QID PRN; Protocol PRN Reason: infected tooth Buspirone HCl (Buspirone Hcl 10 Mg Tablet) 10 mg PO BID [facility] Last Admin: 02/16/25 08:11 Dose: 10 mg Duloxetine HCl (Duloxetine Hcl 30 Mg Capsule.Dr) 30 mg PO DAILY [facility] Hydroxyzine HCl (Hydroxyzine Hcl 50 Mg Tablet) 50 mg PO Q6H PRN PRN Reason: mild anxiety Ibuprofen (Ibuprofen 600 Mg Tablet) 600 mg PO Q8H PRN PRN Reason: severe back pain Last Admin: 02/16/25 10:30 Dose: 600 mg Magnesium Hydroxide (Milk Of Magnesia 30 Ml Oral.Susp) 30 ml PO DAILY PRN PRN Reason: Constipation Melatonin (Melatonin 3 Mg Tablet) 9 mg PO BEDTIME [facility] Last Admin: 02/15/25 20:13 Dose: 9 mg Nicotine (Nicotine 21 Mg Patch.Td24) 21 mg TRANSDERMA DAILY PRN PRN Reason: smoking cessation Nicotine Polacrilex (Nicotine Polacrilex 2 Mg Gum) 4 mg BUCCAL Q2H PRN PRN Reason: Nicotine Cravings Olanzapine (Olanzapine 5 Mg Tablet) 5 mg PO TID PRN PRN Reason: agitation Last Admin: 02/13/25 20:19 Dose: 5 mg Trazodone HCl (Trazodone Hcl 50 Mg Tablet) 50 mg PO BEDTIME MRX1 PRN PRN Reason: Insomnia Allergies Allergies Allergy/AdvReac Type Severity Reaction Status Date / Time No Known Allergies Allergy Verified 02/13/25 15:21 Assessment & Plan Assessment & Plan (1) Dental abscess: Status: Acute Code(s): K04.7 - Periapical abscess without sinus Plan HPI: patient is a 39 y.o single, Croatian speaking female with hx of MDD, PTSD, anxiety and ADHD, sleep apnea with chronic back pain who presented to ED from Retirement d/t restless appearing and had stated that she had not been sleeping for several days. Catherine reports that she has been homeless and had been staying with family member but was kicked out. She started smoking crack /ANA MARIA, and drinking again. This causing her to feel upset and sad. Discuss with patient regarding meds. Patient agrees with re-start of Buspar, start on Cymbalta for mood/pain. Melatonin for insomnia, and baclofen 10mg BID for pain/ W/D/craving. Plan to get back on meds, stay sober, working on self esteem. Patient is interested in long team treatment program. Formulation/clinical reasoning: Increased in substacne use (ANA MARIA/Crack, alcohol, and weed, increased in depression, anxiety, poor sleep and poor appetite, Increased in SI. Currently not on meds, no current OP provider. Hx of MDD, ANA MARIA use D/O, ADHD, PTSD. Given the above information, patient would benefit in restrictive environment for safety, re-start on meds, and refer patient to Treatment program as well as OP psychiatric services to maintain sobriety. Hospital course: 02/14/25 Bacclofen 10mg BID for W/D or craving for ANA MARIA. Melatonin 9 mg at HS for insomnia Buspar 10mg BID for mood/anxiety Cymbalta 20mg daily for mood/pain. Will have patient to use hospital CPAP at night for sleep apnea. Trazodone, and Hydroxyzine PRN available for insomnia, and anxiety 02/15/25: Meet with patient in room this afternoon while patient in bed napping. Arousable during assessment. Patient did not remember she was seen by mechanical service specialist prior to meeting with this provider. Denies safety concerns, report 3-08/24 for anxiety and depression. Wearing the same dress as yesterday. Intermittently visible in common areas, pleasant upon approach. She is not sure if she wants to go to treatment program. Tolerate well with meds. Continue to be tired. Nursing is aware that it is ok for patient to use Hospital CPAP at night for sleep. Educate patient on elevated her head with more pillows while sleeping. Patient seen by Addiction team. Per addiction team note/plan Continue baclofen as ordered, dose can be increased as tolerated by patient Allow patient to rest as she is likely withdrawing from stimulant use. Encouragte hydration and food when possible, but otherwise allow to sleep for the first day or 2 radio machinist to follow up and discuss StUD supports. 02/16/25: Patient slept slept well, using CPAP last night, got a good solid 7 hours sleep. Visible in common areas, playing games in the kitchen with peers and attended groups. Continue to improve in mood, less anxious and depressed, brighter affect. Denies craving for ANA MARIA/Crack. report sever tooth pain. Seen by hospitalist and started on ABT. Patient requests to have appointment with dentist to have the tooth extracted once discharge. Patient declined residential program, want to go to longterm where she is aware of ANA MARIA/Crack use around but feel like she can get support from porter sample case there. Denies SI/SIB/HI/AVH. Discuss with patient regarding Cymbalta, she is receptive with plan to Increase up to 30mg daily for depression/pain. Motrin and Anbasol PRN for tooth pain Per Hospitalist note: Tooth abscess Patient with 2 teeth intact to left upper jaw with multiple fillings and dental caries Evidence of infection including redness, inflammation and pain We will treat with Augmentin 875 twice daily for 7 days Patient will need outpatient follow up for tooth extraction. Plan Patient on 15 minute checks for safety. Admitted to [facility]. CV. Possible discharge next week on Wednesday. Work with treatment team to do collateral for CSS/CCS if possible for aftercare. Refer to patient to immunology specialist:ssen on 02/15/25. Patient seen by Hospitalist on 02/14/25. [place] +ANA MARIA, THC. BAL negative. CMP and other lab results are unremarkable in the ED. Patient will need outpatient follow up for tooth extraction. Patient educated on: diagnosis, medication risk/benefits, substance abuse and therapeutic strategies Informed Consent: understands Reason for continued inpatient stay Substantial Risk for: med/psych decompensation Time Spent With Patient Time: Total time managing care of this patient today ____ minutes.
[2025-02-16] MEDS: Benzocaine 20 % Oral Gel 9 GM TUBE 1 APPL MUCOUS MEM ×2 (17:48→21:47)
[2025-02-16 20:30] VITALS: BP 134/60; PULSE 88; RESP 16; TEMP 37; O2SAT 99
[2025-02-17 08:00] VITALS: BP 132/76; PULSE 103; TEMP 36.5; O2SAT 99
--- NOTE | 2025-02-17 14:53 | MHC.RECOVRN ---
Met with pt in common area after request received from ACS provider to f/u with StUD supports. Chart review completed. Pt. was transferred to [facility] inpt. psych from [facility] ED for overall decompensation in the presence of ongoing crack use. Pt reports that she was staying with her grandparents and was kicked out and went to the custodial and they were concerned and called EMS. Upon assessment pt is sitting in common area watching TV with peers. She was pleasant and agreeable to our meeting. Eye contact was poor but she was engaged and appeared to be processing and understanding the information being presented. Pt reports she has been using crack for 14 years. Her longest period of sobriety was 1.5 years when she was attending school, working as a RC and living a sober living. She identifies the events that led up to her returning to use as the isolation she felt in the sober living house away from her familiar surroundings. Pt's goal is to find stable housing so that she can focus on her recovery, school and getting her son back. He is 13 and is currently staying with her grandparents. Pt is currently without custodial. T/W provided pt with education and resources re:? risk reduction, counselling and therapy adn support groups. Pt interested in going to custodial after D/C, in Index, getting re connected with CHD therapy, provider and StUD clinic. This information was passed along to pt's SW team for f/u and pt was provided with resources. T/W will F/U with pt. tomorrow to discuss?any questions or additional support needs. ACS available as needed.
--- NOTE | 2025-02-17 17:07 | P.PNPSI_ITS ---
Subjective Subjective Date of Service: 02/17/25 Reason For Visit: decompensation Subjective Notes: Conditional Voluntary Healthcare Proxy: No Guardianship: No Medical Problems Affecting Mental Status: No Interim History: Medical record and nursing notes reviewed; case discussed during rounds with team/nursing staff, and met with patient for supportive therapy/psychoeducation, as well as medication management. Visible in common areas before and after breakfast but back to room napping. She did not use CPAP last night d/t tooth pain. Report less pain or O pain at the assessment time. Denies anxiety or depression. Patient has words with other male peer who was intrusive with poor boundaries. Denies safety concerns. Compliant with meds, no side effects. Tolerate well with meds change and continue with ABT treatment for tooth infection. Medication Compliance: Yes Side effects from medications: No Attending Groups: Intermittent Review of Systems Acute medical concerns: No Medical Review of Systems: unchanged Review of Systems Review of Systems Constitutional: Denies fatigue and Denies fever(s) Cardiovascular: Denies chest pain and Denies dyspnea Respiratory: Denies dyspnea Gastrointestinal: Denies abdominal pain Psychiatric: denies suicidal ideation Endocrine: Denies fatigue Report tooth pain improved Yes all other systems are reviewed and are negative Mental Status Exam Mental Status Exam Narrative: Patient is alert and oriented x4; behavior is cooperative, mild to moderate anxiety and depression; patient is not in distress; dressed in casual attire with kempt hair and adequate hygiene; mood is described as better , affect congruent, brighter; eye contact appropriate; Speech is normal rate, volume and prosody and not pressured, no psychomotor agitation/retardation present; thought process is organized and goal directed; Thought content is WNL, pertinent to relevant topics and without any delusional content, paranoid ideation or grandiosity; denies any SI/SIB/HI. Denies AH and there is no evidence of perceptual disturbance. Patient's insight and judgment improved. Diagnostics Vital Signs (24Hr): Vital Signs - 24 hr 02/16/25 20:30 02/17/25 08:00 Temperature 98.6 F 97.7 F Pulse Rate 88 103 H Respiratory Rate 16 Blood Pressure 134/60 132/76 Pulse Oximetry 99 99 Oxygen Delivery Method Room Air Room Air BMI result Body Mass Index 47.7 Labs 02/14/25 11:49 Medications Medications Current Medications Acetaminophen (Acetaminophen 325 Mg Tablet) 650 mg PO Q6H PRN PRN Reason: Headache/Pain, Scale 1-10 Last Admin: 02/17/25 16:57 Dose: 650 mg Al Hydroxide/Mg Hydroxide (Magnesium Hydrox/Alum Hydrox 30 Ml Oral.Susp) 30 ml PO Q6H PRN PRN Reason: Heartburn/Nausea Amoxicillin/Clavulanate Potassium (Amoxicillin/Potassium Clav 875 Mg Tablet) 875 mg PO BID [facility] Stop: 02/23/25 09:01 Last Admin: 02/17/25 08:38 Dose: 875 mg Baclofen (Baclofen 10 Mg Tablet) 10 mg PO BID [facility] Last Admin: 02/17/25 08:38 Dose: 10 mg Benzocaine (Benzocaine 20 % Oral Gel 9 Gm Tube) 1 appl MUCOUS MEM QID PRN; Protocol PRN Reason: infected tooth Last Admin: 02/16/25 21:47 Dose: 1 appl Buspirone HCl (Buspirone Hcl 10 Mg Tablet) 10 mg PO BID [facility] Last Admin: 02/17/25 08:39 Dose: 10 mg Duloxetine HCl (Duloxetine Hcl 30 Mg Capsule.Dr) 30 mg PO DAILY [facility] Last Admin: 02/17/25 08:38 Dose: 30 mg Hydroxyzine HCl (Hydroxyzine Hcl 50 Mg Tablet) 50 mg PO Q6H PRN PRN Reason: mild anxiety Ibuprofen (Ibuprofen 600 Mg Tablet) 600 mg PO Q8H PRN PRN Reason: severe back pain Last Admin: 02/17/25 16:57 Dose: 600 mg Magnesium Hydroxide (Milk Of Magnesia 30 Ml Oral.Susp) 30 ml PO DAILY PRN PRN Reason: Constipation Melatonin (Melatonin 3 Mg Tablet) 9 mg PO BEDTIME [facility] Last Admin: 02/16/25 21:49 Dose: 9 mg Nicotine (Nicotine 21 Mg Patch.Td24) 21 mg TRANSDERMA DAILY PRN PRN Reason: smoking cessation Nicotine Polacrilex (Nicotine Polacrilex 2 Mg Gum) 4 mg BUCCAL Q2H PRN PRN Reason: Nicotine Cravings Olanzapine (Olanzapine 5 Mg Tablet) 5 mg PO TID PRN PRN Reason: agitation Last Admin: 02/13/25 20:19 Dose: 5 mg Trazodone HCl (Trazodone Hcl 50 Mg Tablet) 50 mg PO BEDTIME MRX1 PRN PRN Reason: Insomnia Last Admin: 02/16/25 21:53 Dose: 50 mg Allergies Allergies Allergy/AdvReac Type Severity Reaction Status Date / Time No Known Allergies Allergy Verified 02/13/25 15:21 Assessment & Plan Assessment & Plan (1) Dental abscess: Status: Acute Code(s): K04.7 - Periapical abscess without sinus Plan HPI: patient is a 39 y.o single, Ukrainian speaking female with hx of MDD, PTSD, anxiety and ADHD, sleep apnea with chronic back pain who [facility]t restless appearing and had stated that she had not been sleeping for several days. Catherine reports that she has been homeless and had been staying with family member but was kicked out. She started smoking crack /ANA MARIA, and drinking again. This causing her to feel upset and sad. Discuss with patient regarding meds. Patient agrees with re-start of Buspar, start on Cymbalta for mood/pain. Melatonin for insomnia, and baclofen 10mg BID for pain/ W/D/craving. Plan to get back on meds, stay sober, working on self esteem. Patient is interested in long team treatment program. Formulation/clinical reasoning: Increased in substacne use (ANA MARIA/Crack, alcohol, and weed, increased in depression, anxiety, poor sleep and poor appetite, Increased in SI. Currently not on meds, no current OP provider. Hx of MDD, ANA MARIA use D/O, ADHD, PTSD. Given the above information, patient would benefit in restrictive environment for safety, re-start on meds, and refer patient to Treatment program as well as OP psychiatric services to maintain sobriety. Hospital course: 02/14/25 Bacclofen 10mg BID for W/D or craving for ANA MARIA. Melatonin 9 mg at HS for insomnia Buspar 10mg BID for mood/anxiety Cymbalta 20mg daily for mood/pain. Will have patient to use hospital CPAP at night for sleep apnea. Trazodone, and Hydroxyzine PRN available for insomnia, and anxiety 02/15/25: Meet with patient in room this afternoon while patient in bed napping. Arousable during assessment. Patient did not remember she was seen by agricultural systems specialist prior to meeting with this provider. Denies safety concerns, report 3-/10 for anxiety and depression. Wearing the same dress as yesterday. Intermittently visible in common areas, pleasant upon approach. She is not sure if she wants to go to treatment program. Tolerate well with meds. Continue to be tired. Nursing is aware that it is ok for patient to use Hospital CPAP at night for sleep. Educate patient on elevated her head with more pillows while sleeping. Patient seen by Addiction team. Per addiction team note/plan Continue baclofen as ordered, dose can be increased as tolerated by patient Allow patient to rest as she is likely withdrawing from stimulant use. Encouragte hydration and food when possible, but otherwise allow to sleep for the first day or 2 ups driver to follow up and discuss StUD supports. 02/16/25: Patient slept slept well, using CPAP last night, got a good solid 7 hours sleep. Visible in common areas, playing games in the kitchen with peers and attended groups. Continue to improve in mood, less anxious and depressed, brighter affect. Denies craving for ANA MARIA/Crack. report sever tooth pain. Seen by hospitalist and started on ABT. Patient requests to have appointment with dentist to have the tooth extracted once discharge. Patient declined residential program, [facility] where she is aware of ANA MARIA/Crack use around but feel like she can get support from case loader operator there. Denies SI/SIB/HI/AVH. Discuss with patient regarding Cymbalta, she is receptive with plan to Increase up to 30mg daily for depression/pain. Motrin and Anbasol PRN for tooth pain Per Hospitalist note: Tooth abscess Patient with 2 teeth intact to left upper jaw with multiple fillings and dental caries Evidence of infection including redness, inflammation and pain We will treat with Augmentin 875 twice daily for 7 days Patient will need outpatient follow up for tooth extraction. 02/17/25: Visible in common areas before and after breakfast but back to room napping. She did not use CPAP last night d/t tooth pain. Report less pain or O pain at the assessment time. Denies anxiety or depression. Patient has words with other male peer who was intrusive with poor boundaries. Denies safety concerns. Compliant with meds, no side effects. Tolerate well with meds change and continue with ABT treatment for tooth infection. Plan Patient on 15 minute checks for safety. Admitted to . [facility]. Possible discharge next week on Wednesday. Work with treatment team to do collateral for CSS/CCS if possible for aftercare: would like to [facility]. Refer to patient to disability benefits specialist:ssen on 02/15/25. Patient seen by Hospitalist on 02/14/25. [place] +ANA MARIA, THC. BAL negative. CMP and other lab results are unremarkable in the ED. Patient will need outpatient follow up for tooth extraction. Patient educated on: medication risk/benefits, substance abuse and therapeutic strategies Informed Consent: understands Reason for continued inpatient stay Substantial Risk for: med/psych decompensation Time Spent With Patient Time: Total time managing care of this patient today ____ minutes.
[2025-02-17 20:31] VITALS: BP 130/69; PULSE 88; RESP 18; TEMP 36.1; O2SAT 98
[2025-02-18 08:11] VITALS: BP 106/53; PULSE 92; TEMP 36.4; O2SAT 95
--- NOTE | 2025-02-18 15:31 | MHC.RECOVRN ---
Met with pt. in to F/U and offer support Pt sitting up on bed. Updated pt. on the e mails I sent yesterday re: her D/C goals. Pt denies any further questions/concerns at this time. ACS available PRN
--- NOTE | 2025-02-18 18:57 | P.PNPSI_ITS ---
Subjective Subjective Date of Service: 02/18/25 Reason For Visit: decompensation Subjective Notes: Conditional Voluntary Healthcare Proxy: No Guardianship: No Medical Problems Affecting Mental Status: No Interim History: Medical record and nursing notes reviewed; case discussed during rounds with team/nursing staff, and met with patient for supportive therapy/psychoeducation, as well as medication management. Slept good, compliant with medication, no side effects, more visible, social with peers and staff in the dining room. Continued to improve in mood, tolerable to pain on the two abscesses/infected teeth. Continue with antibiotic. No behavior issues, no safety concerns. Hope to get a bed at the retirement. Medication Compliance: Yes Side effects from medications: No Attending Groups: Yes Review of Systems Acute medical concerns: No Medical Review of Systems: unchanged Review of Systems Review of Systems Constitutional: Denies fatigue and Denies fever(s) Cardiovascular: Denies chest pain and Denies dyspnea Respiratory: Denies dyspnea Gastrointestinal: Denies abdominal pain Psychiatric: denies suicidal ideation Endocrine: Denies fatigue Report tooth pain improved Yes all other systems are reviewed and are negative Mental Status Exam Mental Status Exam Narrative: Patient is alert and oriented x4; behavior is cooperative, mild anxiety and depression; patient is not in distress; dressed in casual attire with kempt hair and adequate hygiene; mood is described as good affect congruent, brighter; eye contact appropriate; Speech is normal rate, volume and prosody and not pressured, no psychomotor agitation/retardation present; thought process is organized and goal directed; Thought content is WNL, pertinent to relevant topics and without any delusional content, paranoid ideation or grandiosity; denies any SI/SIB/HI. Denies AH and there is no evidence of perceptual disturbance. Patient's insight and judgment improved. Diagnostics Vital Signs (24Hr): Vital Signs - 24 hr 02/17/25 20:31 02/18/25 08:11 Temperature 97.0 F 97.5 F Pulse Rate 88 92 Respiratory Rate 18 Blood Pressure 130/69 106/53 L Pulse Oximetry 98 95 Oxygen Delivery Method Room Air Room Air BMI result Body Mass Index 47.7 Labs 02/14/25 11:49 Medications Medications Current Medications Acetaminophen (Acetaminophen 325 Mg Tablet) 650 mg PO Q6H PRN PRN Reason: Headache/Pain, Scale 1-10 Last Admin: 02/18/25 08:29 Dose: 650 mg Al Hydroxide/Mg Hydroxide (Magnesium Hydrox/Alum Hydrox 30 Ml Oral.Susp) 30 ml PO Q6H PRN PRN Reason: Heartburn/Nausea Amoxicillin/Clavulanate Potassium (Amoxicillin/Potassium Clav 875 Mg Tablet) 875 mg PO BID [facility] Stop: 02/23/25 09:01 Last Admin: 02/18/25 08:15 Dose: 875 mg Baclofen (Baclofen 10 Mg Tablet) 10 mg PO BID [facility] Last Admin: 02/18/25 08:15 Dose: 10 mg Benzocaine (Benzocaine 20 % Oral Gel 9 Gm Tube) 1 appl MUCOUS MEM QID PRN; Protocol PRN Reason: infected tooth Last Admin: 02/16/25 21:47 Dose: 1 appl Buspirone HCl (Buspirone Hcl 10 Mg Tablet) 10 mg PO BID [facility] Last Admin: 02/18/25 08:15 Dose: 10 mg Duloxetine HCl (Duloxetine Hcl 30 Mg Capsule.Dr) 30 mg PO DAILY [facility] Last Admin: 02/18/25 08:16 Dose: 30 mg Hydroxyzine HCl (Hydroxyzine Hcl 50 Mg Tablet) 50 mg PO Q6H PRN PRN Reason: mild anxiety Ibuprofen (Ibuprofen 600 Mg Tablet) 600 mg PO Q8H PRN PRN Reason: severe back pain Last Admin: 02/18/25 08:30 Dose: 600 mg Magnesium Hydroxide (Milk Of Magnesia 30 Ml Oral.Susp) 30 ml PO DAILY PRN PRN Reason: Constipation Melatonin (Melatonin 3 Mg Tablet) 9 mg PO BEDTIME [facility] Last Admin: 02/17/25 21:25 Dose: 9 mg Nicotine (Nicotine 21 Mg Patch.Td24) 21 mg TRANSDERMA DAILY PRN PRN Reason: smoking cessation Nicotine Polacrilex (Nicotine Polacrilex 2 Mg Gum) 4 mg BUCCAL Q2H PRN PRN Reason: Nicotine Cravings Olanzapine (Olanzapine 5 Mg Tablet) 5 mg PO TID PRN PRN Reason: agitation Last Admin: 02/13/25 20:19 Dose: 5 mg Trazodone HCl (Trazodone Hcl 50 Mg Tablet) 50 mg PO BEDTIME MRX1 PRN PRN Reason: Insomnia Last Admin: 02/17/25 21:26 Dose: 50 mg Allergies Allergies Allergy/AdvReac Type Severity Reaction Status Date / Time No Known Allergies Allergy Verified 09/30/25 15:21 Assessment & Plan Assessment & Plan (1) Dental abscess: Status: Acute Code(s): K04.7 - Periapical abscess without sinus Plan HPI: patient is a 39 y.o single, Hong [place]er speaking female with hx of MDD, PTSD, anxiety and ADHD, sleep apnea with chronic back pain who presented to ED from [facility] d/t restless appearing and had stated that she had not been sleeping for several days. Catherine reports that she has been homeless and had been staying with family member but was kicked out. She started smoking crack /ANA MARIA, and drinking again. This causing her to feel upset and sad. Discuss with patient regarding meds. Patient agrees with re-start of Buspar, start on Cymbalta for mood/pain. Melatonin for insomnia, and baclofen 10mg BID for pain/ W/D/craving. Plan to get back on meds, stay sober, working on self esteem. Patient is interested in long team treatment program. Formulation/clinical reasoning: Increased in substacne use (ANA MARIA/Crack, alcohol, and weed, increased in depression, anxiety, poor sleep and poor appetite, Increased in SI. Currently not on meds, no current OP provider. Hx of MDD, ANA MARIA use D/O, ADHD, PTSD. Given the above information, patient would benefit in restrictive environment for safety, re-start on meds, and refer patient to Treatment program as well as OP psychiatric services to maintain sobriety. Hospital course: 02/14/25 Bacclofen 10mg BID for W/D or craving for ANA MARIA. Melatonin 9 mg at HS for insomnia Buspar 10mg BID for mood/anxiety Cymbalta 20mg daily for mood/pain. Will have patient to use hospital CPAP at night for sleep apnea. Trazodone, and Hydroxyzine PRN available for insomnia, and anxiety 02/15/25: Meet with patient in room this afternoon while patient in bed napping. Arousable during assessment. Patient did not remember she was seen by certified health education specialist prior to meeting with this provider. Denies safety concerns, report 3-10 for anxiety and depression. Wearing the same dress as yesterday. Intermittently visible in common areas, pleasant upon approach. She is not sure if she wants to go to treatment program. Tolerate well with meds. Continue to be tired. Nursing is aware that it is ok for patient to use Hospital CPAP at night for sleep. Educate patient on elevated her head with more pillows while sleeping. Patient seen by Addiction team. Per addiction team note/plan Continue baclofen as ordered, dose can be increased as tolerated by patient Allow patient to rest as she is likely withdrawing from stimulant use. Encouragte hydration and food when possible, but otherwise allow to sleep for the first day or 2 automotive parts specialist to follow up and discuss StUD supports. 02/16/25: Patient slept slept well, using CPAP last night, got a good solid 7 hours sleep. Visible in common areas, playing games in the kitchen with peers and attended groups. Continue to improve in mood, less anxious and depressed, brighter affect. Denies craving for ANA MARIA/Crack. report sever tooth pain. Seen by hospitalist and started on ABT. Patient requests to have appointment with dentist to have the tooth extracted once discharge. Patient declined residential program, want to go to retirement where she is aware of ANA MARIA/Crack use around but feel like she can get support from case monitor there. Denies SI/SIB/HI/AVH. Discuss with patient regarding Cymbalta, she is receptive with plan to Increase up to 30mg daily for depression/pain. Motrin and Anbasol PRN for tooth pain Per Hospitalist note: Tooth abscess Patient with 2 teeth intact to left upper jaw with multiple fillings and dental caries Evidence of infection including redness, inflammation and pain We will treat with Augmentin 875 twice daily for 7 days Patient will need outpatient follow up for tooth extraction. 02/17/25: Visible in common areas before and after breakfast but back to room napping. She did not use CPAP last night d/t tooth pain. Report less pain or O pain at the assessment time. Denies anxiety or depression. Patient has words with other male peer who was intrusive with poor boundaries. Denies safety concerns. Compliant with meds, no side effects. Tolerate well with meds change and continue with ABT treatment for tooth infection. 02/18/25: Slept good, compliant with medication, no side effects, more visible, social with peers and staff in the dining room. Continued to improve in mood, tolerable to pain on the two abscesses/infected teeth. Continue with antibiotic. No behavior issues, no safety concerns. Hope to get a bed at the retirement. Plan Patient on 15 minute checks for safety. Admitted to . [facility]. Possible discharge next week on Wednesday. Work with treatment team to do collateral for CSS/CCS if possible for aftercare: would like to go to retirement instead. Refer to patient to cash processing specialist:apriln on 02/15/25. Patient seen by Hospitalist on 02/14/25. [place] +ANA MARIA, THC. BAL negative. CMP and other lab results are unremarkable in the ED. Patient will need outpatient follow up for tooth extraction. Patient educated on: diagnosis, medication risk/benefits, substance abuse and therapeutic strategies Informed Consent: understands Reason for continued inpatient stay Substantial Risk for: med/psych decompensation Time Spent With Patient Time: Total time managing care of this patient today ____ minutes.
[2025-02-18 20:00] VITALS: BP 134/61; PULSE 81; RESP 18; TEMP 37.2; O2SAT 97
[2025-02-19 08:58] VITALS: BP 157/94; PULSE 103; RESP 16; TEMP 35.9; O2SAT 96
--- NOTE | 2025-02-19 10:23 | P.PNPSI_ITS ---
Subjective Subjective Date of Service: 02/19/25 Reason For Visit: decompensation Subjective Notes: Conditional Voluntary Healthcare Proxy: No Guardianship: No Medical Problems Affecting Mental Status: No Interim History: Pt awake, in bed, reading. Denies current sx, however, while talking, crying. Not wanting to talk about the issue that is causing these feelings today. Can we talk about this tomorrow- I just want to rest . Reports medicines are effective, without adverse effect Preparing for discharge on 02/21. Medication Compliance: Yes Side effects from medications: No Attending Groups: Intermittent Review of Systems Acute medical concerns: No Medical Review of Systems: unchanged Review of Systems Review of Systems Dental pain Mental Status Exam Mental Status Exam Patient Appearance: Fatigued and Appropriate Patient Orientation: Person, Place, Time and Situation Level of Consciousness: Alert Patient Behavior: Talkative and Crying Mood Description: Constricted Affect Description: Constricted Patient Cognition Impaired: No Ability to Follow Directions: Good Speech Pattern: Spontaneous Speech Memory Description: Intact Hallucinations: None Delusions: Not Present Thought Process: Rumination Thought Content: positive for Circumstantial and positive for Perseveration Depressive Symptoms: Thoughts of /Suicide (denies) Judgement: Good Diagnostics Vital Signs (24Hr): Vital Signs - 24 hr 02/18/25 20:00 02/19/25 08:58 Temperature 98.9 F 96.6 F L Pulse Rate 81 103 H Respiratory Rate 18 16 Blood Pressure 134/61 157/94 H Pulse Oximetry 97 96 Oxygen Delivery Method Room Air Room Air BMI result Body Mass Index 47.7 Labs 02/14/25 11:49 Medications Medications Current Medications Acetaminophen (Acetaminophen 325 Mg Tablet) 650 mg PO Q6H PRN PRN Reason: Headache/Pain, Scale 1-10 Last Admin: 02/19/25 09:19 Dose: 650 mg Al Hydroxide/Mg Hydroxide (Magnesium Hydrox/Alum Hydrox 30 Ml Oral.Susp) 30 ml PO Q6H PRN PRN Reason: Heartburn/Nausea Amoxicillin/Clavulanate Potassium (Amoxicillin/Potassium Clav 875 Mg Tablet) 875 mg PO BID [facility] Stop: 02/23/25 09:01 Last Admin: 02/19/25 08:56 Dose: 875 mg Baclofen (Baclofen 10 Mg Tablet) 10 mg PO BID [facility] Last Admin: 02/19/25 08:57 Dose: 10 mg Benzocaine (Benzocaine 20 % Oral Gel 9 Gm Tube) 1 appl MUCOUS MEM QID PRN; Protocol PRN Reason: infected tooth Last Admin: 02/16/25 21:47 Dose: 1 appl Buspirone HCl (Buspirone Hcl 10 Mg Tablet) 10 mg PO BID [facility] Last Admin: 02/19/25 08:56 Dose: 10 mg Duloxetine HCl (Duloxetine Hcl 30 Mg Capsule.Dr) 30 mg PO DAILY [facility] Last Admin: 02/19/25 08:57 Dose: 30 mg Hydroxyzine HCl (Hydroxyzine Hcl 50 Mg Tablet) 50 mg PO Q6H PRN PRN Reason: mild anxiety Ibuprofen (Ibuprofen 600 Mg Tablet) 600 mg PO Q8H PRN PRN Reason: severe back pain Last Admin: 02/19/25 09:20 Dose: 600 mg Magnesium Hydroxide (Milk Of Magnesia 30 Ml Oral.Susp) 30 ml PO DAILY PRN PRN Reason: Constipation Melatonin (Melatonin 3 Mg Tablet) 9 mg PO BEDTIME [facility] Last Admin: 02/18/25 20:33 Dose: 9 mg Nicotine (Nicotine 21 Mg Patch.Td24) 21 mg TRANSDERMA DAILY PRN PRN Reason: smoking cessation Nicotine Polacrilex (Nicotine Polacrilex 2 Mg Gum) 4 mg BUCCAL Q2H PRN PRN Reason: Nicotine Cravings Olanzapine (Olanzapine 5 Mg Tablet) 5 mg PO TID PRN PRN Reason: agitation Last Admin: 02/13/25 20:19 Dose: 5 mg Trazodone HCl (Trazodone Hcl 50 Mg Tablet) 50 mg PO BEDTIME MRX1 PRN PRN Reason: Insomnia Last Admin: 02/18/25 20:33 Dose: 50 mg Allergies Allergies Allergy/AdvReac Type Severity Reaction Status Date / Time No Known Allergies Allergy Verified 02/13/25 15:21 Assessment & Plan Assessment & Plan (1) Dental abscess: Status: Acute Code(s): K04.7 - Periapical abscess without sinus Plan HPI: patient is a 39 y.o single, Lao speaking female with hx of MDD, PTSD, anxiety and ADHD, sleep apnea with chronic back pain who presented [facility] ED from [facility] d/t restless appearing and had stated that she had not been sleeping for several days. Paitent reports that she has been homeless and had been staying with family member but was kicked out. She started smoking crack /ANA MARIA, and drinking again. This causing her to feel upset and sad. Discuss with patient regarding meds. Patient agrees with re-start of Buspar, start on Cymbalta for mood/pain. Melatonin for insomnia, and baclofen 10mg BID for pain/ W/D/craving. Plan to get back on meds, stay sober, working on self esteem. Patient is interested in long team treatment program. Formulation/clinical reasoning: Increased in substacne use (ANA MARIA/Crack, alcohol, and weed, increased in depression, anxiety, poor sleep and poor appetite, Increased in SI. Currently not on meds, no current OP provider. Hx of MDD, ANA MARIA use D/O, ADHD, PTSD. Given the above information, patient would benefit in restrictive environment for safety, re-start on meds, and refer patient to Treatment program as well as OP psychiatric services to maintain sobriety. Hospital course: 02/14/25 Bacclofen 10mg BID for W/D or craving for ANA MARIA. Melatonin 9 mg at HS for insomnia Buspar 10mg BID for mood/anxiety Cymbalta 20mg daily for mood/pain. Will have patient to use hospital CPAP at night for sleep apnea. Trazodone, and Hydroxyzine PRN available for insomnia, and anxiety 02/15/25: Meet with patient in room this afternoon while patient in bed napping. Arousable during assessment. Patient did not remember she was seen by music specialist prior to meeting with this provider. Denies safety concerns, report 3-08/24 for anxiety and depression. Wearing the same dress as yesterday. Intermittently visible in common areas, pleasant upon approach. She is not sure if she wants to go to treatment program. Tolerate well with meds. Continue to be tired. Nursing is aware that it is ok for patient to use Hospital CPAP at night for sleep. Educate patient on elevated her head with more pillows while sleeping. Patient seen by Addiction team. Per addiction team note/plan Continue baclofen as ordered, dose can be increased as tolerated by patient Allow patient to rest as she is likely withdrawing from stimulant use. Encouragte hydration and food when possible, but otherwise allow to sleep for the first day or 2 firefighter type one to follow up and discuss StUD supports. 02/16/25: Patient slept slept well, using CPAP last night, got a good solid 7 hours sleep. Visible in common areas, playing games in the kitchen with peers and attended groups. Continue to improve in mood, less anxious and depressed, brighter affect. Denies craving for ANA MARIA/Crack. report sever tooth pain. Seen by hospitalist and started on ABT. Patient requests to have appointment with dentist to have the tooth extracted once discharge. Patient declined residential program, want to go to intermediate where she is aware of ANA MARIA/Crack use around but feel like she can get support from pillowcase cutter there. Denies SI/SIB/HI/AVH. Discuss with patient regarding Cymbalta, she is receptive with plan to Increase up to 30mg daily for depression/pain. Motrin and Anbasol PRN for tooth pain Per Hospitalist note: Tooth abscess Patient with 2 teeth intact to left upper jaw with multiple fillings and dental caries Evidence of infection including redness, inflammation and pain We will treat with Augmentin 875 twice daily for 7 days Patient will need outpatient follow up for tooth extraction. 02/17/25: Visible in common areas before and after breakfast but back to room napping. She did not use CPAP last night d/t tooth pain. Report less pain or O pain at the assessment time. Denies anxiety or depression. Patient has words with other male peer who was intrusive with poor boundaries. Denies safety concerns. Compliant with meds, no side effects. Tolerate well with meds change and continue with ABT treatment for tooth infection. 02/18/25: Slept good, compliant with medication, no side effects, more visible, social with peers and staff in the dining room. Continued to improve in mood, tolerable to pain on the two abscesses/infected teeth. Continue with antibiotic. No behavior issues, no safety concerns. Hope to get a bed at the intermediate. 02/19/25: Continue tx. DC 02/21 per team. Plan Patient on 15 minute checks for safety. Admitted to [facility]. CV. Possible discharge next week on Wednesday. Work with treatment team to do collateral for [facility] if possible for aftercare: would like to go to intermediate instead. Refer to patient to nutrition specialist:ssen on 02/15/25. Patient seen by Hospitalist on 02/14/25. [place] +ANA MARIA, THC. BAL negative. CMP and other lab results are unremarkable in the ED. Patient will need outpatient follow up for tooth extraction. Reason for continued inpatient stay Substantial Risk for: rapid decompensation Time Spent With Patient Time: Total time managing care of this patient today ____ minutes.
--- NOTE | 2025-02-19 16:47 | MHC.RECOVRN ---
TW left message w/ Renard Antoine @ [facility]) to schedule intake appt for pt. Awaiting response. Contact information provided on pt discharge summary if no appt made prior to discharge.
[2025-02-19 20:31] VITALS: BP 140/78; PULSE 97; RESP 16; TEMP 36.8; O2SAT 96
[2025-02-20 08:00] VITALS: BP 122/57; PULSE 96; RESP 16; TEMP 36.4; O2SAT 97
--- NOTE | 2025-02-20 10:35 | P.PNPSI_ITS ---
Subjective Subjective Date of Service: 02/20/25 Reason For Visit: decompensation Subjective Notes: Conditional Voluntary Healthcare Proxy: No Guardianship: No Medical Problems Affecting Mental Status: No Interim History: Pt willing to meet today. Discussed the pain of discord with her family, grandmother, and how deeply this hurts her.. Grandfather and aunt have reached out to her, however, I am not ready to talk with them, I need some time. No mater what happens, I will be OK. Discussed dental appt and getting her car back on the road. Plans discharge for 02/21. Denies SI,HI,AH,VH. Appears somewhat guarded at times. Medication Compliance: Yes Side effects from medications: No Attending Groups: No Review of Systems Acute medical concerns: No Medical Review of Systems: unchanged Review of Systems Review of Systems Dental pain Mental Status Exam Mental Status Exam Patient Appearance: Fatigued and Appropriate Patient Orientation: Person, Place, Time and Situation Level of Consciousness: Alert Patient Behavior: Talkative and Crying Mood Description: Constricted Affect Description: Constricted Patient Cognition Impaired: No Ability to Follow Directions: Good Speech Pattern: Spontaneous Speech Memory Description: Intact Hallucinations: None Delusions: Not Present Thought Process: Rumination Thought Content: positive for Circumstantial and positive for Perseveration Depressive Symptoms: Thoughts of /Suicide (denies) Judgement: Good Diagnostics Vital Signs (24Hr): Vital Signs - 24 hr 02/19/25 20:31 02/20/25 08:00 Temperature 98.2 F 97.6 F Pulse Rate 97 96 Respiratory Rate 16 16 Blood Pressure 140/78 H 122/57 L Pulse Oximetry 96 97 Oxygen Delivery Method Room Air Room Air BMI result Body Mass Index 47.7 Labs 02/14/25 11:49 Medications Medications Current Medications Acetaminophen (Acetaminophen 325 Mg Tablet) 650 mg PO Q6H PRN PRN Reason: Headache/Pain, Scale 1-10 Last Admin: 02/20/25 08:20 Dose: 650 mg Al Hydroxide/Mg Hydroxide (Magnesium Hydrox/Alum Hydrox 30 Ml Oral.Susp) 30 ml PO Q6H PRN PRN Reason: Heartburn/Nausea Amoxicillin/Clavulanate Potassium (Amoxicillin/Potassium Clav 875 Mg Tablet) 875 mg PO BID [facility] Stop: 02/23/25 09:01 Last Admin: 02/20/25 08:14 Dose: 875 mg Baclofen (Baclofen 10 Mg Tablet) 10 mg PO BID [facility] Last Admin: 02/20/25 08:14 Dose: 10 mg Benzocaine (Benzocaine 20 % Oral Gel 9 Gm Tube) 1 appl MUCOUS MEM QID PRN; Protocol PRN Reason: infected tooth Last Admin: 02/16/25 21:47 Dose: 1 appl Buspirone HCl (Buspirone Hcl 10 Mg Tablet) 10 mg PO BID [facility] Last Admin: 02/20/25 08:14 Dose: 10 mg Duloxetine HCl (Duloxetine Hcl 30 Mg Capsule.Dr) 30 mg PO DAILY [facility] Last Admin: 02/20/25 08:14 Dose: 30 mg Hydroxyzine HCl (Hydroxyzine Hcl 50 Mg Tablet) 50 mg PO Q6H PRN PRN Reason: mild anxiety Last Admin: 02/19/25 21:22 Dose: 50 mg Ibuprofen (Ibuprofen 600 Mg Tablet) 600 mg PO Q8H PRN PRN Reason: severe back pain Last Admin: 02/20/25 08:20 Dose: 600 mg Magnesium Hydroxide (Milk Of Magnesia 30 Ml Oral.Susp) 30 ml PO DAILY PRN PRN Reason: Constipation Melatonin (Melatonin 3 Mg Tablet) 9 mg PO BEDTIME [facility] Last Admin: 02/19/25 21:19 Dose: 9 mg Nicotine (Nicotine 21 Mg Patch.Td24) 21 mg TRANSDERMA DAILY PRN PRN Reason: smoking cessation Nicotine Polacrilex (Nicotine Polacrilex 2 Mg Gum) 4 mg BUCCAL Q2H PRN PRN Reason: Nicotine Cravings Olanzapine (Olanzapine 5 Mg Tablet) 5 mg PO TID PRN PRN Reason: agitation Last Admin: 02/13/25 20:19 Dose: 5 mg Trazodone HCl (Trazodone Hcl 50 Mg Tablet) 50 mg PO BEDTIME MRX1 PRN PRN Reason: Insomnia Last Admin: 02/19/25 21:21 Dose: 50 mg Allergies Allergies Allergy/AdvReac Type Severity Reaction Status Date / Time No Known Allergies Allergy Verified 02/13/25 15:21 Assessment & Plan Assessment & Plan (1) Dental abscess: Status: Acute Code(s): K04.7 - Periapical abscess without sinus Plan HPI: patient is a 39 y.o single, Greenlandic speaking female with hx of MDD, PTSD, anxiety and ADHD, sleep apnea with chronic back pain who presented to ED from [facility] d/t restless appearing and had stated that she had not been sleeping for several days. Catherine reports that she has been homeless and had been staying with family member but was kicked out. She started smoking crack /ANA MARIA, and drinking again. This causing her to feel upset and sad. Discuss with patient regarding meds. Patient agrees with re-start of Buspar, start on Cymbalta for mood/pain. Melatonin for insomnia, and baclofen 10mg BID for pain/ W/D/craving. Plan to get back on meds, stay sober, working on self esteem. Patient is interested in long team treatment program. Formulation/clinical reasoning: Increased in substacne use (ANA MARIA/Crack, alcohol, and weed, increased in depression, anxiety, poor sleep and poor appetite, Increased in SI. Currently not on meds, no current OP provider. Hx of MDD, ANA MARIA use D/O, ADHD, PTSD. Given the above information, patient would benefit in restrictive environment for safety, re-start on meds, and refer patient to Treatment program as well as OP psychiatric services to maintain sobriety. Hospital course: 02/14/25 Bacclofen 10mg BID for W/D or craving for ANA MARIA. Melatonin 9 mg at HS for insomnia Buspar 10mg BID for mood/anxiety Cymbalta 20mg daily for mood/pain. Will have patient to use hospital CPAP at night for sleep apnea. Trazodone, and Hydroxyzine PRN available for insomnia, and anxiety 02/15/25: Meet with patient in room this afternoon while patient in bed napping. Arousable during assessment. Patient did not remember she was seen by clinical pharmacy specialist prior to meeting with this provider. Denies safety concerns, report 3-10 for anxiety and depression. Wearing the same dress as yesterday. Intermittently visible in common areas, pleasant upon approach. She is not sure if she wants to go to treatment program. Tolerate well with meds. Continue to be tired. Nursing is aware that it is ok for patient to use Hospital CPAP at night for sleep. Educate patient on elevated her head with more pillows while sleeping. Patient seen by Addiction team. Per addiction team note/plan Continue baclofen as ordered, dose can be increased as tolerated by patient Allow patient to rest as she is likely withdrawing from stimulant use. Encouragte hydration and food when possible, but otherwise allow to sleep for the first day or 2 refinish technician to follow up and discuss StUD supports. 02/16/25: Patient slept slept well, using CPAP last night, got a good solid 7 hours sleep. Visible in common areas, playing games in the kitchen with peers and attended groups. Continue to improve in mood, less anxious and depressed, brighter affect. Denies craving for ANA MARIA/Crack. report sever tooth pain. Seen by hospitalist and started on ABT. Patient requests to have appointment with dentist to have the tooth extracted once discharge. Patient declined residential program, [facility] where she is aware of ANA MARIA/Crack use around but feel like she can get support from caser in there. Denies SI/SIB/HI/AVH. Discuss with patient regarding Cymbalta, she is receptive with plan to Increase up to 30mg daily for depression/pain. Motrin and Anbasol PRN for tooth pain Per Hospitalist note: Tooth abscess Patient with 2 teeth intact to left upper jaw with multiple fillings and dental caries Evidence of infection including redness, inflammation and pain We will treat with Augmentin 875 twice daily for 7 days Patient will need outpatient follow up for tooth extraction. 02/17/25: Visible in common areas before and after breakfast but back to room napping. She did not use CPAP last night d/t tooth pain. Report less pain or O pain at the assessment time. Denies anxiety or depression. Patient has words with other male peer who was intrusive with poor boundaries. Denies safety concerns. Compliant with meds, no side effects. Tolerate well with meds change and continue with ABT treatment for tooth infection. 02/18/25: Slept good, compliant with medication, no side effects, more visible, social with peers and staff in the dining room. Continued to improve in mood, tolerable to pain on the two abscesses/infected teeth. Continue with antibiotic. No behavior issues, no safety concerns. [facility]. 02/20: DC 02/21. No changes in meds today. Plan Patient on 15 minute checks for safety. Admitted to [facility]. CV. Possible discharge next week on Wednesday. Work with treatment team to do collateral for [facility] if possible for aftercare: would like to go to jail instead. Refer to patient to associate relations specialist:ssen on 02/15/25. Patient seen by Hospitalist on 02/14/25. [place] +ANA MARIA, THC. BAL negative. CMP and other lab results are unremarkable in the ED. Patient will need outpatient follow up for tooth extraction. Reason for continued inpatient stay Substantial Risk for: rapid decompensation Time Spent With Patient Time: Total time managing care of this patient today ____ minutes.
[2025-02-20 20:32] VITALS: BP 132/85; PULSE 90; RESP 16; TEMP 35.9; O2SAT 94
[2025-02-21 07:56] VITALS: BP 143/87; PULSE 132; TEMP 36.4; O2SAT 94
--- NOTE | 2025-02-21 12:04 | P.DS_ITS ---
DS: Providers Provider Date of Service: 02/21/25 Date of admission: 02/13/25 15:06 Date of discharge: 02/21/25 Primary care physician: Unknown Physician Admitting clinician: Debo Valdez Attending physician on admission: Keaton Dailey Consults: 02/13/25 15:22 Consult to Hospitalist Routine Comment: Consulting Provider: [facility] Hospitalists Reason For Exam: admission physical 02/14/25 15:04 Addiction Medicine Provider Routine Consulting Provider: Addiction Covering Reason for consultation: Heavy ANA MARIA use, would like treatment Has provider been notified: Yes 02/16/25 12:00 Consult to Hospitalist Routine Comment: Consulting Provider: [facility] Hospitalists Reason For Exam: ? tooth infection Attending physician on discharge: Keaton Dailey Discharging clinician: Abbey Oleary DS: Diagnosis Discharge Diagnosis (1) Cocaine use disorder: Status: Acute (2) ADHD: Status: Acute (3) PTSD (post-traumatic stress disorder): Status: Acute (4) MDD (major depressive disorder): Status: Acute DS: Medications Discharge Medications Home Medications: Previous Rx's ?Medication ?Instructions ?Recorded acetaminophen 325 mg tablet 650 mg (2 x 325 mg) PO Q6H PRN 02/20/25 Headache/Pain, Scale 1-10 #0 tabs amoxicillin 875 mg-potassium 1 tab PO BID #14 tabs 12/08 clavulanate 125 mg tablet baclofen 10 mg tablet 10 mg PO BID #30 tabs benzocaine 20 % mucosal gel 1 appl mucous membrane QID PRN 02/20/25 (Anbesol (benzocaine) Maximum infected tooth #30 appl Strength) buspirone 10 mg tablet 10 mg PO BID #60 tabs duloxetine 30 mg capsule,delayed 30 mg PO DAILY #30 ca ps 02/20/25 release hydroxyzine HCl 50 mg tablet 50 mg PO Q6H PRN mild anx iety #30 02/20/25 tabs ibuprofen 600 mg tablet 600 mg PO Q8H PRN severe catherine k pain 02/20/25 #30 tabs melatonin 3 mg tablet 9 mg (3 x 3 mg) PO BEDTIME # 90 tabs 02/20/25 trazodone 50 mg tablet 50 mg PO BEDTIME MRX1 PRN In somnia 02/20/25 #60 tabs Mental Status Exam Mental Status Exam Patient Appearance: Fatigued and Appropriate Patient Orientation: Person, Place, Time and Situation Level of Consciousness: Alert Patient Behavior: Talkative Mood Description: Constricted Affect Description: Constricted Patient Cognition Impaired: No Ability to Follow Directions: Good Speech Pattern: Spontaneous Speech Memory Description: Intact Hallucinations: None Delusions: Not Present Thought Process: Rumination Thought Content: positive for Circumstantial and positive for Perseveration Depressive Symptoms: Thoughts of /Suicide (denies) Judgement: Good Data Data Completed and Pending Completed studies during hospitalization [Text1]: 02/14/25 11:49 Sodium 142 Potassium 4.6 Chloride 101 Carbon Dioxide 35 H Anion Gap 11 L BUN 10 Creatinine 0.86 Estim Creat Clear Calc 136.3 Estimated GFR > 60 Random Glucose 97 Calcium 9.1 Total Bilirubin 0.1 AST 37 H ALT 10 Alkaline Phosphatase 77 Total Protein 7.5 Albumin 3.8 Triglycerides 126 Cholesterol 138 LDL Cholesterol, Calc 82 HDL Cholesterol 31 L TSH 0.60 DS: Summary Hospital Course Hospital Course: Admission to adult psychiatry for exacerbation of PTSD, Recurrent Major Depression, Cocaine Dependence. Hx of ADHD, MIRTA, and chronic back pain. Pt reports using a few hundred dollars daily of cocaine, depending on her availability of funds, stopping medications several months before current admission. Reported auditory and visual perceptual alterations with increase cocaine/alcohol use, poor sleep. Pt identified main precipitant as an argument with her grandmother, where grandmother asked pt to leave the home (where pt's s on was living). Medications were evaluated and adjusted. Pt was seen by hospitalist team and treated for a dental abscess. Pt asked for an out pt appt with [facility] upon discharge. [facility] was contacted. They will call pt to schedule and appointment per their office. Pt's aunt and uncle attempted to reach out to her to offer family support during the admission, however, pt chose not to return their calls, citing needing time to process the conflict which precipitated admission. Pt was accepted for [facility] admission and will continue treatment with [facility] post discharge. She is aware she may call or return as needed. Status at Discharge Functional status at discharge: independent ambulation Overall status at discharge: patient is progressing back to baseline Time Spent with Patient Time attestation: Total time managing care of this patient today ____ minutes. Time spent: Less than 30 minutes Discharge Plan Discharge Anticipated Discharge Date/Time: 02/21/25 11:00 Patient Disposition: Group Home Discharge Diagnosis: PTSD Recurrent Major Depression Cocaine Use Disorder ADHD Dental Abscess Referrals: [facility] [Other] - 02/26/25 7:30 am Referral Note: 02/26/2025 07:30 AM - 08:00 AM Substance Use Case Management - Non [place] Prog: [facility] Site: [address] [place] [address] [place] Staff: ISIDRA JOHNSON [facility] [Other] - 02/26/25 8:00 am Referral Note: 02/26/2025 08:00 AM - 09:00 AM [facility] Adult Comprehensive Assessment Prog: [facility] Site: [address] [place], [place] [address] Staff: KB EMERSON [facility] [Other] - 03/21/25 9:00 am Referral Note: 03/21/2025 09:00 AM - 10:00 AM Psychiatric E/M New - Telehealth v2 Prog: [facility] Site: [address] [place] [address] [place] Staff: Annie Degroot [facility] [Other] - 1 Day Referral Note: A referral has been sent on your behalf. Please call or stop in to follow up upon discharge. Physician,Unknown J [Primary Care Provider, Medical] - 1 Week Discharge Medications: New acetaminophen 325 mg Tablet 650 mg PO Q6H PRN (Reason: Headache/Pain, Scale 1-10) Qty: 0 0RF trazodone 50 mg Tablet 50 mg PO BEDTIME MRX1 PRN (Reason: Insomnia) Qty: 60 0RF hydroxyzine HCl 50 mg Tablet 50 mg PO Q6H PRN (Reason: mild anxiety) Qty: 30 0RF melatonin 3 mg Tablet 9 mg PO BEDTIME Qty: 90 0RF baclofen 10 mg Tablet 10 mg PO BID Qty: 30 1RF buspirone 10 mg Tablet 10 mg PO BID Qty: 60 0RF ibuprofen 600 mg Tablet 600 mg PO Q8H PRN (Reason: severe back pain) Qty: 30 0RF Anbesol (benzocaine) Max Str 20 % Gel 1 appl mucous membrane QID PRN (Reason: infected tooth) Qty: 30 0RF Protocol: Apply to: Apply to: infected tooth amoxicillin-pot clavulanate 875-125 mg Tablet 1 tab PO BID Qty: 14 0RF duloxetine 30 mg Capsule,Delayed Release(Dr/Ec) 30 mg PO DAILY Qty: 30 0RF Discharge Orders: Discharge Order (Routine); Ordered 02/21/25 Ordered By: Abbey Oleary Diet: Advance to usual diet Activity on Discharge: As tolerated Stand Alone Forms: Patient Portal Discharge page, Community Support Print Language: Malaysian Care Plan Goals: Abstinence from substances Mood and Behavioral Stabilization Health Concerns: Abstinence from substances Mood and Behavioral Stabilization Plan of Treatment: Attend scheduled appointments Take medications as directed Assessment: Denies SI,HI,AH, VH No symptoms of acute grayson or psychosis Agrees with plan of care and discharge plan. Discharge Date/Time: 02/21/25 11:52
== END 2025-02-21 11:52 | disposition home or self-care (01) | DRG 751 ==
PROVIDERS: Admitting Provider Psychiatry & Neurology Psychiatry; Visit Provider Clinical Nurse Specialist Psychiatric/Mental Health, Adult
DX: F33.9 Major depressive disorder, recurrent, unspecified (principal); F14.10 Cocaine abuse, uncomplicated; F17.210 Nicotine dependence, cigarettes, uncomplicated; K02.9 Dental caries, unspecified; F90.9 Attention-deficit hyperactivity disorder, unspecified type; K04.7 Periapical abscess without sinus; F43.10 Post-traumatic stress disorder, unspecified; Z71.6 Tobacco abuse counseling; Z79.899 Other long term (current) drug therapy
CPT/HCPCS: 36415; 80053; 80061; 83036; 84443

== ENCOUNTER → 2025-02-13 15:06 | Outpatient (BNV) | payer MEDICAID, SELFPAY | PROVIDERS: Admitting Provider Psychiatry & Neurology Psychiatry; Visit Provider Nurse Practitioner Family | DX: Z00.8 Encounter for other general examination (principal) | CPT/HCPCS: 99231; 99499 ==

== ENCOUNTER → 2025-02-13 15:06 | Outpatient (BNV) | payer OTHER, SELFPAY | PROVIDERS: Admitting Provider Psychiatry & Neurology Psychiatry; Visit Provider Nurse Practitioner Psychiatric/Mental Health | DX: F32.2 Major depressive disorder, single episode, severe without psychotic features (principal); F14.10 Cocaine abuse, uncomplicated; F43.11 Post-traumatic stress disorder, acute; F90.9 Attention-deficit hyperactivity disorder, unspecified type | CPT/HCPCS: 99231; 99232; 99499 ==